=== PATIENT | male | born 1945 | race Caucasian/White ===

== ENCOUNTER 2019-01-15 13:24 | Inpatient (IN) | payer OTHER ==
[~2019-01-15] VITALS: Ht 177.8 cm; Wt 73.4 kg
--- NOTE | ~2019-01-15 | CON ---
[address] [address] CONSULTATION Name: YUSEF OLSON Polly Room: [address] IN ..#: [id number] Admission: 01/15/19 Attend Phys: Ravin Little MD Discharge: Date of : 45 Report #: [id number] THIS REPORT FOR: //name// CC: Dr. Debbie Rubio FAM unknown Ravin Little DICTATED BY: Amairani Chavira [facility] DATE OF SERVICE: 01/20/2019 PRIMARY CARE PHYSICIAN: Dr. Debbie Rubio. Please note at the time of this dictation, the patient was seen and physically examined by myself. REASON FOR CONSULTATION: Abnormal video swallowing. HISTORY OF PRESENT ILLNESS: This is a 73-year-old male who suffered a stroke earlier in December. He was hospitalized at [facility] for 2 weeks and was [facility]. Because he had failed a swallowing test early on he underwent a PEG tube placement on 01/08/2019. They did state that he did have some duodenal ulcers in there, but I do not have a report to look to see what his upper esophagus showed if anything. The patient is currently on warfarin for his history of stroke. The patient states he has had EGD and colonoscopies done in the past at [facility]. ALLERGIES: AMLODIPINE, DILTIAZEM, HYDRALAZINE, AND STATINS. MEDICATIONS FROM HOME: Warfarin, albuterol, aspirin, lisinopril, glyburide, carvedilol, docusate, insulin, and lansoprazole. PAST MEDICAL HISTORY: Heart disease, hypertension, and vascular disease. He has had a valve replacement. PAST SURGICAL HISTORY: Valvular replacement. FAMILY HISTORY: Noncontributory. SOCIAL HISTORY: Quit smoking greater than one year ago. Alcohol socially, does live with his spouse and denies any illegal drug use. REVIEW OF SYSTEMS: Twelve-point review of systems is essentially negative except what [place] [address] CONSULTATION Name: OLSONYUSEF Polly Room: [address]#: [id number] Admission: 01/15/19 Attend Phys: Ravin Little MD Discharge: Date of : 45 Report #: [id number] PHYSICAL EXAMINATION: VITAL SIGNS: Temperature 37.1, pulse 85, respirations 16, and blood pressure 157/89. HEART: Regular rate and rhythm. LUNGS: Clear. ABDOMEN: Soft, positive bowel sounds in all 4 quadrants with no masses or tenderness noted. LABORATORY DATA: Hemoglobin is 11.7, white count is 10.2, and platelets 238. PT is 19.4 and INR is 1.9. His GFR is 73. IMPRESSION: 1. Abnormal video swallow noted by speech therapist noticing some narrowing in the upper esophagus. 2. Anticoagulant therapy, warfarin secondary to stroke. 3. History of duodenal ulcers noted with PEG placement. 4. Gastroesophageal reflux disease. PLAN: 1. We will obtain records from [facility] regarding his EGD with PEG placement. 2. We will obtain a barium swallow with thickened honey only in the upright position and we will avoid lying down procedure. 3. Further recommendations to be made once the above have been performed. Thank you for allowing us to participate in this patient's care. Please do not hesitate to call with any questions in regard to this consult. By: [id number] Muir MD /nt
[2019-01-15 15:00] VITALS: BP 128/64
[2019-01-15] MEDS ORDERED: PROAIR HFA8.5 GM INH (16:45)
[2019-01-15] MEDS ORDERED: ASPIRIN PER TUBE (16:48)
[2019-01-15] MEDS ORDERED: CARVEDILOL12.5 MG PER TUBE (16:49)
[2019-01-15] MEDS ORDERED: ENOXAPARIN100 MG/11 SUBQ (16:50)
[2019-01-15] MEDS ORDERED: FISH OIL 1,001000 M3 PO (16:53)
[2019-01-15] MEDS ORDERED: AMARYL2 M1 PER TUBE (17:15)
[2019-01-15] MEDS ORDERED: PREVACID30 MG PER TUBE (17:26)
[2019-01-15] MEDS ORDERED: PRINIVIL20 M1 PER TUBE (17:32)
[2019-01-15] MEDS ORDERED: COUMADIN 5 MG TA5 M1 PER TUBE (17:33)
[2019-01-15] MEDS ORDERED: ROSUVASTATIN CA10 MG PER TUBE (17:49)
--- NOTE | 2019-01-15 21:14 | NUR ---
PATIENT ARRIVED VIA FAMILY CAR WITH SON. ALERT AND ORIENTED X4. ASSESSMENT CHARTED. UP WITH STAND BY ASSIST, GAIT BELT AND WALKER. NPO AT THIS TIME WITH BOLUS TUBE FEEDING PER PEG TUBE EVERY 3 HOURS FROM 6 AM TO 6 PM. PATIENT C/O NAUSEA AND NEW ORDER RECEIVED FOR NAUSEA MEDICATION. SPEECH SLURRED BUT EASY TO UNDERSTAND. PATIENT REQUESTED SUCTIONS FOR ORAL SECRETIONS. DR NOTIFIED AND NEW ORDER NOTED. BUTTOCK AREA RED BUT NO OPEN AREA NOTED. ORIENTED TO ROOM AND CALL LIGHT. CALL LIGHT WITHIN REACH.
[2019-01-15 21:50] VITALS: BP 161/79
--- NOTE | 2019-01-16 02:25 | NUR ---
ASSUMED CARE @ 1929-01/15-FRIDAY.SITS @ BEDSIDE & CALLED TO GO TO BATHROOM W/ ASSIST.HOB UP IN BED.URINAL PLACED W/IN REACH.INSTRUCTED TO USE URINAL @ NIGHT.BED ALARM PUT ON @ 1929.AT 0-PATIENT VERBALIZED WANTING TO EAT. INFORMED PATIENT THAT ORDER WAS NPO.PATIENT INFORMED RN HE WAS EATING PUDDING & thickened liquid @ [facility].RN TALKED TO PATIENT THAT HE WOULD BE EVALUATED BY SPEECH THERAPIST IN AM FOR SWALLOWING EVAL.CALLS TO STAND TO USE URINAL.SUCTIONS SELF & SHOWN HOW TO RINSE SUCTION AFTER EACH USE.ON HOURLY ROUNDS.
[2019-01-16 04:58] LABS: HEMATOCRIT 36.3 % (42.0-52.0); HEMOGLOBIN 12.2 gm/dL (14.0-18.0); MCH 30.3 pg (26.0-34.0); MCHC 33.6 g/dL (28.0-37.0); MCV 90.1 fL (80.0-100.0); MPV 10.9 fl. (7.2-11.1); RBC 4.03 mil/uL (4.50-6.00); RDW-CV 15.9 % (10.5-14.5); WBC 11.9 thou/uL (4.0-11.0)
[2019-01-16 05:00] LABS: INR 1.5; PROTIME 14.7 Seconds (9.20-11.50)
[2019-01-16 05:23] LABS: ALBUMIN 3.3 g/dL (3.4-5.0); CALCIUM 9.4 mg/dL (8.5-10.1); POTASSIUM 4.2 mmol/L (3.5-5.1); TOTAL BILIRUBIN 0.5 mg/dL (<0.1-1.0); TOTAL PROTEIN 6.4 g/dL (6.4-8.2)
--- NOTE | 2019-01-16 05:36 | NUR ---
SLEEPING @ 2100.BUT AWAKE FROM 2200 TO 0200.SLEEPING @ 0300 TO 0500.TURNS SELF @ NIGHT.BRP X1 TO VOID.USED URINAL X2.URINE FOR UA SENT TO LAB @ 0330.
[2019-01-16 05:46] LABS: URINE BILIRUBIN NEGATIVE (Negative); URINE BLOOD NEGATIVE (Negative); URINE CLARITY CLEAR; URINE COLOR YELLOW; URINE GLUCOSE-RANDOM 3+ (Negative); URINE KETONES NEGATIVE (Negative); URINE LEUKOCYTES NEGATIVE (Negative); URINE NITRITE NEGATIVE (Negative); URINE PROTEIN NEGATIVE (Negative); URINE UROBILINOGEN 0.2 E.U./dl (0.2-1.0)
--- NOTE | 2019-01-16 07:23 | NUR ---
NO RESIDUAL FROM PEG @ 0640.BOLUS TF GIVEN FOLLOWED W/ 200 ML H20.DRSG CHANGED PEG SITE @ 0645.
[2019-01-16 09:00] VITALS: BP 126/78
--- NOTE | 2019-01-16 09:49 | NUR ---
PT USED THE CALL LIGHT BECAUSE HE WANTED TO GET BACK INTO BED. I CHECKED THE THERAPY AND SCHEDULE AND WAS GOING TO HIS ROOM WHEN HIS CHAIR ALARM WENT OFF. ONCE I REACHED THE ROOM I FOUND HIM SITTING ON THE SIDE OF THE BED. PT STATED IN A LOUD, ARGUMENTATIVE VOICE THAT IF HE CAN DO SOMETHING HIMSELF HE WILL NOT WAIT FOR STAFF TO COME. ATTEMPTS MADE TO EDUCATE PT ON IMPORTANCE OF ADHERING TO THE FALL PRECAUTIONS.
[2019-01-16 14:47] LABS: INR 1.5; PROTIME 15.4 Seconds (9.20-11.50)
--- NOTE | 2019-01-16 18:50 | NUR ---
PATIENT AGITATED AND ARGUMENTATIVE THIS AM, CALMED WHEN THERAPY CAME IN TO DO EVAL. PATIENT MORE PLEASANT AND COOPERATIVE THRU AFTERNOON. FRIEND IN TO SEE PATIENT THIS EVENING. SEE PT/OT NOTES. SEE MAY. PEG TUBE SITE NOTED WNL. MEDICATIONS GIVEN PER PEG THRU SHIFT. RESTING IN BED W/ CALL LIGHT IN REACH. EYES CLOSED AT THIS TIME, NO ACUTE DISTRESS NOTED. ~TJRN
[2019-01-16 19:50] VITALS: BP 135/72
--- NOTE | 2019-01-17 02:18 | NUR ---
ASSUMED CARE @ 1934-01/16-SAT.AWAKE IN BED.CALLS FOR ASSIST TO STAND TO VOID. NURSE JUST EMPTIES URINAL.BED ALARM PUT ON @ 1944.TUBE FEEDING OF JEVITY 1.5 0NE CAN GIVEN PER PEG @ 2154.25 ML RESIDUAL.H20 BOLUS OF 150 ML GIVEN AFTER TF.TURNS SELF @ NIGHT.SUCTIONS SELF.ON HOURLY ROUNDS.
[2019-01-17 05:19] LABS: INR 1.7; PROTIME 17.1 Seconds (9.20-11.50)
--- NOTE | 2019-01-17 05:21 | NUR ---
SLEEPING @ 2100,2200 & 2300. SLEPT GOOD ALL NIGHT FROM 0000 TO 0410.REFUSED HS SNACK.USED URINAL X3.NOTED SMALL AMOUNT BLEEDING ON PT'S SHIRT.PEG SITE BLEEDING.PEG SITE CLEANSED W/ H20,DRIED & DRAIN SPONGE APPLIED @ 0415.USED URINAL X3 DURING NIGHT.
[2019-01-17 08:00] VITALS: BP 153/75
--- NOTE | 2019-01-17 15:48 | NUR ---
AM ASSESSMENT AND VITAL SIGNS COMPLETED DOCUMENTED. PT HAS BEEN PLEASANT AND COOPERATIVE THIS SHIFT. PT USES THE URINAL STANDING AT THE BEDSIDE, STAFF EMPTIES IT AND RETURNS IT TO HIM. PT FEEDS HIMSELF AND HAS A FAIR APPETITE. MEDICATIONS ARE CRUSHED AND ADMINISTERED VIA THE PEG TUBE, NUTRITION SUPPLEMENTED WITH 2 BOLUS FEEDINGS DAILY. FALL PRECAUTIONS AND HURLY ROUNDING CONTINUE.
[2019-01-17 19:00] VITALS: BP 162/75
--- NOTE | 2019-01-18 02:44 | NUR ---
ASSUMED CARE @ 1934-01/17-FRIDAY.APPEARS SLEEPING ALREADY IN BED W/ HOB UP. URINAL W/IN REACH.BED ALARM PUT ON @ 1934.SUCTIONS SELF & TURNS SELF @ NIGHT. RESIDUAL-150 ML.JEVITY 1.5 ONE CAN GIVEN PER PEG @ 2129 W/ H20 FLUSH-150 ML.HAD SMALL EMESIS @ 2221.PRN ZOFRAN GIVEN @ 2230 W/ RELIEF.CALLED FOR 2ND EMESIS @ 214-SCANTY.RINSED BOTH TIMES W/ MOUTHWASH.INFORMED THAT PRN ZOFRAN IS ORDERED Q 6 HOURS.SBA TO STAND TO USE URINAL.ON HOURLY ROUNDS.
--- NOTE | 2019-01-18 05:31 | NUR ---
SLEEPING SINCE 1935.AWAKE @ INTERVALS.USED URINAL X3.TOOK ALL HONEY THICK APPLE JUICE HS SNACK.PEG TIMBO CHANGED @ 9892.FOR VIDEO SWALLOW TODAY- 01/18-FRIDAY.
[2019-01-18 06:01] LABS: INR 1.8; PROTIME 17.8 Seconds (9.20-11.50)
[2019-01-18 07:30] VITALS: BP 142/75
--- NOTE | 2019-01-18 14:57 | NUR ---
ASSUMED CARE AT 0730. ALERT ORIENTED PLEASANT COOPERATIVE. HX OF CVA MOVES ALL EXTREMETIES. TRANSFERS WITH G BELT WALKER AND AMBULATES WITH THERAPIES. DENIES PAIN BUT HAS COMPLAINTS OF DIZZINESS PT. THINKS THE DIZZINESS IS RELATED TO LOVENOX INJECTIONS. FEEDS SELF PUREED DIET AND HONEY LIQUIDS MEDS CRUSHED AND THROUGH PEG TUBE THIS A.M. DR. MARROQUIN HERE AND SPOKE WITH PT. RE LOVENOX AND INR READINGS. L ARM WHERE PT. HAD LAB DRAW HAS BLED X 2 PRESSURE HELD AND 4 X 4 S WITH COBAN PLACED. PT. HAS PARTICIPATED IN THERAPIES HAD VIDEO SWALLOW CAN HAVE REGULAR DIET WITH HONEY LIQUIDS AND MEDS CAN BE GIVEN WHOLE WITH HONEY LIQUIDS. DID C/O NAUSEA ZOFRAN 4 MG. ODT GIVEN THIS A.M. [place] BUT UNDERSTANDS STAFF. VOIDS PER URINAL. COUGHS PRODUCTIVELY AT TIMES. HAS ANGELINE AT BEDSIDE. PEG TUBE DRESSING INTACT.
--- NOTE | 2019-01-18 16:29 | NUR ---
SW completed initial assessment for inpt rehab unit. Pt nurse and DIRECTOR BUSINESS SYSTEMS working with pt and changing pt bed sheets as pt blood was on sheets. Pt lives at home alone and has supportive family and friends. Pt has shower chair or bench and needs home INR; SW to follow to assist with arranging needed DME for home prior to pt dc. SW to continue to follow to assist with safe dc planning.
[2019-01-18 17:39] LABS: HEMATOCRIT 34.7 % (42.0-52.0); HEMOGLOBIN 11.7 gm/dL (14.0-18.0); MCH 30.8 pg (26.0-34.0); MCHC 33.9 g/dL (28.0-37.0); MCV 91.1 fL (80.0-100.0); MPV 10.9 fl. (7.2-11.1); RBC 3.81 mil/uL (4.50-6.00); WBC 10.2 thou/uL (4.0-11.0)
[2019-01-18 17:51] LABS: INR 1.8; PROTIME 18.1 Seconds (9.20-11.50)
[2019-01-18 19:30] VITALS: BP 141/73
--- NOTE | 2019-01-18 19:44 | NUR ---
PT. HAS HAD BLEEDING FROM LEFT ANTECUBITAL LAB DRAW X 3. DR. TAVAREZ AND DR. MARROQUIN AWARE AND ORDERS OBTAINED RE PRESSURE DRESSING APPLICATION TO AREA AND MONITOR CLOSELY. PT// INR REDRAWN AT 1700 AND CBC. PT/INR WAS SAME A.M. DRESSING WAS REPLACED AT 1630 AND TEGADERM APPLIED OVER 4 X 4 S AT SHIFT CHANGE DRESSING WAS SATURATED UNDER TEGADERM BUT NOT ON PTS. CLOTHING L ARM ELEVATED ON PILLOW AND KEPT STILL FOR OVER AN HR, REFUSED METFORMIN COUMADIN THIS P.M.
[2019-01-19 05:11] LABS: INR 1.5; PROTIME 15.1 Seconds (9.20-11.50)
--- NOTE | 2019-01-19 05:29 | NUR ---
ASSUMED CARES AT 1920. ALERT AND ORIENTED. THIS EVENING PT EXPRESSED FRUSTRATION WITH VARIOUS THINGS LIKE MEDS, PT/INR, AND BLEEDING TO LEFT ARM. TOOK PILLS WHOLE WITH APPLESAUCE AND HONEY THICK LIQUIDS. PEG TUBE PATENT. PT REFUSED 1900 CAN OF TUBE FEEDING. TOOK 2200 CAN OF GLUCERNA BUT C/O OF BEING FULL WHICH THEN SUBSIDED. COUGHING UP SMALL AMOUNTS PHLEGM, THIN/THICK CLEAR. ORDER FOR GEL FOAM APPLIED TO LEFT AC DUE TO CONTINUOUS BLEEDING. NO FURTHER BLEEDING NOTED. PT REFUSED LOVENOX. EARLIER IN DAY PT HAD REFUSED COUMADIN BUT AFTER DISCUSSION PT ONLY AGREEABLE TO TAKE 7.5 MG AND NOT 10 MG ORDERED AND SO COUMADIN 7.5 MG GIVEN. PT ALSO WANTED TO KNOW WHY HE WAS NOT TAKING HIS CHOLESTEROL MED. INFORMED PT THAT WOULD NEED TO DISCUSS WITH HOSPITALIST IN AM. MIN ASSIST WITH GAIT BELT AND WALKER. USED URINAL AND NURSING EMPTIED. SLEPT SOME. CALL LIGHT IN REACH AND BED ALARM ON.
[2019-01-19 08:08] VITALS: BP 160/83
[2019-01-19 09:30] VITALS: BP 160/83
--- NOTE | 2019-01-19 18:21 | NUR ---
PATIENT ALERT AND ORIENTED WITH PERIODS OF FORGETFULLNESS. UP WITH STAND BY ASSIST, GAIT BELT AND WALKER. PATIENT BECAME VERY AGGITATED WITH CHANGE IN MEDICATIONS THIS AM. HE REFUSED ALL HIS PO MEDICATIONS AT FIRST BUT LATER DID TAKE EVERYTHING EXCEPT HIS PO BLOOD SUGAR MEDICATIONS. HE IS ON HONEY THICKEN LIQUIDS WITH REGULAR DIET. MESSAGE LEFT FOR GI CONSULT. CONTINENT OF URINE WITH USE OF URINAL. TUBE FEEDING D/C BY PATIENT ABLE TO TAKE PILLS WHOLE FOLLOWED BY APPLE SAUCE WITHOUT DIFFICULTY. PATIENT REFUSED LAXATIVE WHEN OFFERED. PARTICIPATED WITH THERAPIES. CALL LIGHT WITHIN REACH. SPEECH REMAINS SLIGHTLY SLURRED. ABLE TO LET WANTS AND NEEDS BE KNOW N.
[2019-01-19 19:00] VITALS: BP 172/83
[2019-01-20 04:42] LABS: INR 1.9; PROTIME 19.4 Seconds (9.20-11.50)
--- NOTE | 2019-01-20 05:58 | NUR ---
ASSUMED CARES AT 1920. ALERT AND ORIENTED BUT EASILY IRRITABLE. TOOK PILLS WHOLE WITH APPLESAUCE. MIN ASSIST WITH GAIT BELT AND WALKER. USED URINAL. COUGHS UP THIN PHLEGM. HAS CL AT BEDSIDE. SLEPT MOST OF THE NIGHT. CALL LIGHT IN REACH AND BED ALARM ON.
[2019-01-20 08:00] VITALS: BP 157/79
[2019-01-20 09:30] VITALS: BP 157/89
--- NOTE | 2019-01-20 12:50 | NUR ---
TAM and Dr Little met with pt to review team conference summary and plan for pt to remain on rehab unit at least another week with team to reassess pt length of stay during team conference next Friday. Pt was upset with the plan for reteam because pt felt he would be ready to dc sooner. Dr Little and TAM explained pt safety and goals with pt needing to be more independent with all tasks as pt is home alone. SW to complete handicap parking application and provide back to pt prior to dc and SW working on securing INR monitor; TAM called cardiology office to discuss how to arrange and who to order from because usually PCP, cardiology or services arrange for pts but no answer. SW to continue to work on arranging home INR monitor for pt prior to pt dc (dc date unknown at this time; reteam next Friday).
--- NOTE | 2019-01-20 19:49 | NUR ---
ALERT WITH PERIODS OF FORGETFULLNESS. DR NOTIFIED OF PATIENT REFUSING SOME OF MEDICATIONS. PILLS GIVEN PO WITHOUT DIFFICULTY FOLLOWED WITH APPLESAUCE. PATIENT REFUSED LAXATIVE FOR CONSTIPATION. UP WITH STAND BY ASSIST GAIT BELT AND WALKER. REMAINS ON HONEY THICKEN LIQUIDS. SPEECH SLIGHTLY SLURRED BUT EASY TO UNDERSTAND. CALL LIGHT WITHIN REACH.
[2019-01-20 20:40] VITALS: BP 137/69
--- NOTE | 2019-01-21 02:11 | NUR ---
ASSUMED CARE @ 1939-01/20-FRI.SITTING IN TOILET @ THIS TIME.SBA FOR TOILETING. LAST BM-01/15.DUL SUP GIVEN RECTALLY @ 1949.LARGE HARD STOOLS FELT WHEN SUP INSERTED.BRP X 2 @ 1939 & 1949-BY HIMSELF.INSTRUCTED TO CALL FOR Assist. AFTER 3RD & 4TH TOILETING,INSTRUCTED TO USE BSC @ 2054 & SIT UNTIL BM IS COMPLETED.HAD LARGE BM @ 2044 & EXTRA LARGE,FORMED BM @ 2129.BED ALARM ON @ 2129.REFUSED TO TAKE MEDS W/ HONEY THICK LIQUIDS.PREFERS TO TAKE HS MEDS W/ APPLE SAUCE BUT TAKEN WHOLE ONE @ A TIME.TEMP @ 2039-.1 -ORAL.TEMP RE-CHECKED @ 49-.5 ORAL.TURNS SELF @ NIGHT.SUCTIONS SELF.ON HOURLY ROUNDS.
[2019-01-21 04:39] LABS: PROTIME 36.4 Seconds (9.20-11.50)
[2019-01-21 04:43] LABS: INR 3.7
--- NOTE | 2019-01-21 05:47 | NUR ---
SLEPT LATE @ 0000-01/21-.AWAKE MOST OF TIME DURING NIGHT.USED URINAL X1 ONLY W/ SBA TO STAND @ 0040.TOOK ALL APPLE SAUCE W/ HS MEDS HS SNACK.IZABEL IZQUIERDO CHANGED @ 0435.BRP X4.BSC X1.
[2019-01-21 10:06] VITALS: BP 172/94
--- NOTE | 2019-01-21 14:18 | NUR ---
SW met with pt and provided completed [employer] parking application. Also provided resources of [facility] group of doctors per pt request to be able to switch from previous PCP of Debbie Eric out of [place]. SW informed pt of TAM working on ordering pt a home INR monitor; SW faxed referral for order to [facility]. SW to continue to follow to assist with safe dc planning.
--- NOTE | 2019-01-21 18:08 | NUR ---
PT HAS PARTICIPATED WITH THERAPIES AND CALLS FOR ASSIST NEEDED. PT STANDS AT SIDE OF BED TO VOID WITH URINAL AND SBA WITH WALKER. PT IS ALERT AND ABLE TO VOICE NEEDS. PT HAS ORAL SUCREATIONS AND SPITS THEM OUT OR USES YANKER. BED AND CHAIR ALARMS IN USE AND FALL PREVENTION DISCUSSED.
[2019-01-21 19:35] VITALS: BP 145/73
--- NOTE | 2019-01-22 01:50 | NUR ---
ASSUMED CARE @ -FRIDAY.APPEARS SLEEPING IN BED W/ HOB UP.BED ALARM ALREADY ON @ 1924.AWAKE @ 2054 & TOOK ALL HS MEDS WHOLE ONE @ A TIME W/ JORGE. PUDDING,FOLLOWED W/ HONEY THICK APPLE JUICE.GAVE SELF MOUTHWASH @ 2134.CALLED @ 2244 TO SBA TO SIT IN RECLINER W/ LE'S UP.CHAIR ALARM PUT ON @ 2244.SUCTIONS SELF.TURNS SELF @ NIGHT.OWN MOISTURE CREAM APPLIED TO PINK BUTTOCKS @ 109. SBA BACK TO BED @ 119-01/22-FRIDAY.ON HOURLY ROUNDS.
[2019-01-22 05:05] LABS: HEMATOCRIT 29.7 % (42.0-52.0); HEMOGLOBIN 9.7 gm/dL (14.0-18.0); MCH 30.3 pg (26.0-34.0); MCHC 32.7 g/dL (28.0-37.0); MCV 92.5 fL (80.0-100.0); RBC 3.22 mil/uL (4.50-6.00); WBC 11.3 thou/uL (4.0-11.0)
[2019-01-22 05:08] LABS: INR 4.2; PROTIME 41.3 Seconds (9.20-11.50)
[2019-01-22 05:12] LABS: CREATININE 0.9 mg/dL (0.6-1.3); MAGNESIUM 1.7 mg/dL (1.8-2.4); POTASSIUM 4.1 mmol/L (3.5-5.1)
--- NOTE | 2019-01-22 05:40 | NUR ---
SLEEPING SINCE 1924.AWAKE @ INTERVALS DURING NIGHT.PULL UPS CHANGED X1.BRP W/ SBA X1.PEG DRSG CHANGED @ 0500.TOOK ALL JORGE PUDDING GIVEN W/ HS MEDS & HONEY THICK APPLE JUICE.
[2019-01-22 08:44] VITALS: BP 148/76
--- NOTE | 2019-01-22 16:35 | NUR ---
pt rests this afternoon but did have c/o nausea and not feeling well. here at time. pt given zofran with good effect.bp was 132/67,83.pt remains alert and orientated and calls for sba when standing at bedside to void.pt ambulates with gaitbelt on and sba of 1 per PT.pt denies pain.
[2019-01-22 20:35] VITALS: BP 129/73
--- NOTE | 2019-01-22 20:35 | NUR ---
SITTING UP IN BED WATCHING BASEBALL GAME ON TV. DENIES PAIN. USES YONKER INTERMITTENTLY TO SUCTION SELF. PEG TUBE INTACT. PEG DRESSING DRY/INTACT. URINAL AND CALL LIGHT WITHIN REACH. TOOK MEDICATION WHOLE WITH APPLESAUSE.
[2019-01-23 04:50] LABS: INR 2.8; PROTIME 28.1 Seconds (9.20-11.50)
--- NOTE | 2019-01-23 05:12 | NUR ---
RESTED ON/OFF. USED URINAL X TWO DURING THE SHIFT. STANDS AT THE BEDSIDE TO VOID. HOURLY ROUNDING IN PROGRESS.
[2019-01-23 07:32] VITALS: BP 133/62
--- NOTE | 2019-01-23 14:41 | NUR ---
ASSUMED CARE AT 0730. ALERT ORIENTED PLEASANT COOPERATIVE. HX OF CVA MOVES ALL EXTREMETIES WELL. TRANSFERS WITH SBA G BELT WALKER PARTICIPATING IN THERAPIES THIS A.M. FEEDS SELF AND TAKES MEDS WHOLE IN APPLESAUCE WITHOUT DIFFICULTY. REFUSES MAGNESIUM TODAY KNOWS HIS MEDS WELL. STATED DIZZINESS WHILE AMBULATING WITH P.T. BPS UP AND DOWN PER PHYSICAL THERAPIST. TO DR FOR LUNCH MEAL APPETITE GOOD. ZINC CREAM APPLIED TO COCCYX AREA PINKNESS NOTED ENCOURAGED TO STAY ON HIS SIDES NOT SUPINE. COUGHS PRODUCTIVELY AT INTERVALS. CLEAR THIN WHITE SPUTUM. RESTING IN BED AFTER THERAPIES.
[2019-01-23 18:30] VITALS: BP 132/73
--- NOTE | 2019-01-23 19:00 | NUR ---
PT. C/O FEELING DIZZY AT 1830. VS WERE WNL SEE GRAPHICS ACCUCHECK WAS 172 AFTER SUPPER MEAL. SITTING UP IN BED. HOB ELEVATED.
--- NOTE | 2019-01-23 19:30 | NUR ---
WENT IN TO CHECK ON PT SINCE HE WAS ANGRY AND THE OTHER RN ASKED ME TO GO LISTEN TO HIS HEART SINCE HE WANTED A PT LAB TO BE RUN. LISTENED TO HIS HEART AND HEARD A RHYTHM THAT SOUNDED LIKE AFIB WHICH IS IN HIS HISTORY. PT STATED HE HAS BEEN "HAVING CHEST PAIN OFF AND ON AND ALL THESE DOCTORS ARE JUST TAKING ALL HIS MEDICATIONS AWAY". WHEN ASKED WHAT MEDICATIONS ARE BEING TAKEN AWAY AND HE STATED HIS FISH OIL WAS PRESCRIBED TWICE A DAY AND THEY HAVE "TAKEN IT AWAY". HE CALLED AND LEFT A MESSAGE WITH HIS SON ON HIS CELL PHONE AND CUSSED HIM OUT DEMANDING THAT HE BRING HIS MEDICATIONS TO THE HOSPITAL. ONCE OFF THE PHONE HE STATED THAT "IF HIS SON DOES NOT BRING HIS MEDS THAT MEANS HE JUST WANTS HIM ". PHYSICIAN AND CHECK CASHIER NOTIFIED, NO NEW ORDERS AT THIS TIME.
--- NOTE | 2019-01-23 19:41 | NUR ---
HOURLY ROUNDING COMPLETED. THIS SHIFT.
[2019-01-23 20:00] VITALS: BP 144/68
--- NOTE | 2019-01-23 21:36 | NUR ---
ASSUMED CARES AT 1930. PT ALERT AND ORIENTED BUT IRRITABLE, UPSET AND FRUSTRATED. REASSESSED PT ABOUT "CHEST PAIN" BUT PT STATES THAT PAIN IS TO LEFT LOWER RIB AND IS NO LONGER THERE. PT UPSET AND ADAMANT THAT HE IS HAVING THIS PAIN BECAUSE HE HAS NOT BEEN TAKING HIS FISH OIL. PT STILL HAS SOME DIZZINESS WHICH HE'S HAD ALL DAY. VITALS WNL. PT DENIED ANY FURTHER PAIN AND NOT IN DISTRESS AT THIS TIME. RESTING COMFORTABLY IN BED. PAGED DR PEREIRA WITH THIS UPDATE. WILL CONTINUE TO MONITOR.
[2019-01-24 04:33] LABS: CALCIUM 8.9 mg/dL (8.5-10.1); CREATININE 1.1 mg/dL (0.6-1.3); MAGNESIUM 1.8 mg/dL (1.8-2.4); POTASSIUM 4.3 mmol/L (3.5-5.1)
[2019-01-24 04:44] LABS: INR 1.5; PROTIME 15.2 Seconds (9.20-11.50)
--- NOTE | 2019-01-24 06:14 | NUR ---
AT MIDNITE, PT HAD MUCH DIFFICULTY WITH BM. PT WAS IMPACTED. SUPPOSITORY, ENEMA GIVEN. PT NEEDED MUCH ASSIST WITH DISIMPACTION AFTER NUMEROUS ATTEMPTS AND WAS ABLE TO HAVE BM WITH RELIEF. MIN ASSIST WITH GAIT BELT AND WALKER. UP TO BATHROOM OR BSC. USED URINAL. TOOK PILLS WHOLE WITH APPLESAUCE AND HONEY THICK LIQUIDS. ENCOURAGED FLUIDS. LOOSE COUGH WITH PHLEGM. YANKAUER AT BEDSIDE. SLEPT LITTLE. CALL LIGHT IN REACH AND BED ALARM ON.
[2019-01-24 08:58] VITALS: BP 111/58
--- NOTE | 2019-01-24 18:03 | NUR ---
ALERT WITH PERIODS OF FORGETFULNESS. UP WITH STAND BY ASSIST, GAIT BELT AND WALKER. MEDICATION GIVEN FOR CONSTIPATION. CONTINENT OF URINE. PATIENT REFUSING TO DRINK HONEY THICKEN LIQUIDS/ WATER. DR NOTIFIED AND NEW ORDER FOR WATER TO BE GIVEN IN PEG TUBE. PEG TUBE CHECKED FOR PATENTCY AND THEN FLUIDS GIVEN IN PEG TUBE WITHOUT DIFFICULTY. PATEINT EASILY AGGITATED. REFUSING CARES AND MEDICATIONS AT TIMES. NO C/O PAIN. NAUSEA MEDICATION GIVEN WITHOUT DIFFICULTY. CALL LIGHT WITHIN REACH AND PATIENT WILL SOMETIMES USE IT AND OTHER TIMES PATIENT WILL GET UP WITHOUT CALLING. CALL LIGHT WITHIN REACH.
[2019-01-24 20:00] VITALS: BP 131/69
--- NOTE | 2019-01-25 05:16 | NUR ---
ASSUMED CARES AT 1920. ALERT AND ORIENTED BUT CAN BE FORGEFUL. IS EASILY IRRITABLE. TOOK PILLS WHOLE WITH APPLESAUCE. WATER BOLUSES GIVEN VIA PEG TUBE. IMPULSIVE MOST TIMES, GETTING UP WITHOUT CALLING. MIN ASSIST WITH GAIT BELT AND WALKER. USED URINAL. COUGHING OUT PHLEGM. SLEPT BETTER TONIGHT. CALL LIGHT IN REACH AND BED ALARM ON.
[2019-01-25 05:53] LABS: INR 1.2; PROTIME 12.7 Seconds (9.20-11.50)
--- NOTE | 2019-01-25 08:37 | NUR ---
PT C/O DYING. COUGH THIS AM WITH LARGE LIGHT YELLOW SPUTUM NOTED O2 SAT IS 99,TEMP 98.3. PT C/O PAIN TO LT MLOWER RIBS,PLAIN TYLENOL GIVEN. PT C/O BEING DROWSEY BUT IS ALERT AND ORIENTATED.
[2019-01-25 08:43] VITALS: BP 164/76
--- NOTE | 2019-01-25 11:41 | NUR ---
PT HAS HAD EPISODE OF N+V AND REFUSES OFFER OF SL ZOFRAN. PT SITTING IN RECLINER WITH FEET UP. PT SHAKES HEAD YES OR NO FOR MOST RESPONCES THIS AM AND OFTEN KEEPS EYES CLOSED BUT WILL OPEN THEM AT TIMES.
[2019-01-25 12:59] LABS: HEMATOCRIT 25.4 % (42.0-52.0); HEMOGLOBIN 8.4 gm/dL (14.0-18.0); MCH 31.1 pg (26.0-34.0); MCHC 33.1 g/dL (28.0-37.0); MCV 93.9 fL (80.0-100.0); MPV 10.2 fl. (7.2-11.1); RBC 2.7 mil/uL (4.50-6.00); WBC 11.7 thou/uL (4.0-11.0)
[2019-01-25 13:13] LABS: CREATININE 0.9 mg/dL (0.6-1.3); POTASSIUM 3.9 mmol/L (3.5-5.1)
--- NOTE | 2019-01-25 16:03 | NUR ---
PT RESTS IN BED NOW AND HAS SLEPT MOST OF AFTERNOON. PT DID REFUSE LUNCH AND REFUSED SC INSULIN.DR.DELA FIGUEROA AWARE. PT DID HAVE CHEST AND ABD X-RAYS DONE WITH NO ABNORMAL FINDINGS.PT CONTINUES TO BE QUIET AND SHAKES HEAD TO YES AND NO QUESTIONS. PT HAS NOT C/O FUTHER NAUSEA OF HAD EMISIS. PT IS GIVEN H2O BOLUS PER PEG TUBE. ALSO AWARE OF PT TODAY.
[2019-01-25 20:00] VITALS: BP 106/60
[2019-01-25 20:31] LABS: URINE BILIRUBIN NEGATIVE (Negative); URINE BLOOD NEGATIVE (Negative); URINE CLARITY CLEAR; URINE COLOR YELLOW; URINE GLUCOSE-RANDOM 2+ (Negative); URINE KETONES NEGATIVE (Negative); URINE LEUKOCYTES-REFLEX NEGATIVE (Negative); URINE NITRITE-REFLEX NEGATIVE (Negative); URINE PROTEIN NEGATIVE (Negative); URINE UROBILINOGEN 0.2 E.U./dl (0.2-1.0)
[2019-01-25 23:30] VITALS: BP 123/70
[2019-01-26 05:22] LABS: INR 1.4; PROTIME 14.2 Seconds (9.20-11.50)
[2019-01-26 06:14] VITALS: BP 108/59
[2019-01-26 07:15] LABS: HEMATOCRIT 24.7 % (42.0-52.0); HEMOGLOBIN 8.3 gm/dL (14.0-18.0); MCH 31.3 pg (26.0-34.0); MCHC 33.5 g/dL (28.0-37.0); MCV 93.3 fL (80.0-100.0); MPV 10.1 fl. (7.2-11.1); RBC 2.64 mil/uL (4.50-6.00); RDW-CV 18.1 % (10.5-14.5); WBC 8.8 thou/uL (4.0-11.0)
[2019-01-26 07:24] LABS: CALCIUM 8.7 mg/dL (8.5-10.1); POTASSIUM 4.1 mmol/L (3.5-5.1); TOTAL BILIRUBIN 0.6 mg/dL (<0.1-1.0); TOTAL PROTEIN 5.9 g/dL (6.4-8.2)
--- NOTE | 2019-01-26 07:33 | NUR ---
ASSUMED CARE AT 1920. PT SLEEPY BUT EASILY AROUSABLE. LESS TALKATIVE. AT TIMES DOES NOT RESPOND TO QUESTIONS BUT KEEPS EYES SHUT AND SHAKES HEAD. SAYS "IM SICK". DENIED CHEST PAIN, DIZZINESS. GOT AGITATED WHEN GIVEN MEDS. VITALS WNL. ACCUCHECK 105 AT HS. PT REFUSED SNACK AND WOULD NOT DRINK. DOES NOT LIKE HONEY LIQUIDS AND DID NOT EAT WELL DURING THE DAY. 1 CAN GLUCERNA WAS GIVEN VIA PEG TUBE AT 2100. WATER BOLUSES GIVEN. MIN ASSIST WITH GAIT BELT AND WALKER. STOOD TO USE URINAL BUT PT SEEMED FATIGUED AND WEAK. SAT UP AND DOWN FROM BED THROUGHOUT THE NIGHT. NO VOMITING BUT SPITTING OUT THICK CLEAR/BEIGE PHLEGM. PAGED DR MARROQUIN AT 0630 WITH PT'S CONDITION, NEW ORDER FOR LAB AND CT HEAD WITHOUT CONTRAST.
[2019-01-26 08:00] VITALS: BP 158/83
--- NOTE | 2019-01-26 10:34 | NUR ---
pt very loud and makes statements of you are killing me and i'm going to . son here and reports this is normal for pt to be negative and yell out at others.dr.de sarah rene has been here and spoken to pt and son.pt has been given ativan 1mg for aggitation crushed per peg for mri and ct test. here and ordered for pt to be transfered to acute for evaluation due to dropping hemaglobin and altered mental status.
--- NOTE | 2019-01-26 12:15 | NUR ---
Pt nurses informed team that pt is to dc to acute today. SW faxed final completed home INR machine order form back to [facility] today.
[2019-01-26 13:01] VITALS: BP 121/55
--- NOTE | 2019-01-26 13:28 | NUR ---
REPORT GIVEN TO TELLY ON TELE. PT TO TRANSFERR TO 208. PT IS CALM AND ANSWERS QUESTIONS WITH YES AND NO SHAKING OF HIS HEAD.
== END 2019-01-26 13:29 | disposition short-term general hospital (02) | DRG 65 ==
LOC: M.REH 13:24
PROVIDERS: Internal Medicine; ADMIT Physical Medicine & Rehabilitation
DX: I63.9 Cerebral infarction, unspecified (principal); I48.20 Chronic atrial fibrillation, unspecified; R13.10 Dysphagia, unspecified; R27.0 Ataxia, unspecified; R47.1 Dysarthria and anarthria; G46.3 Brain stem stroke syndrome; G47.33 Obstructive sleep apnea (adult) (pediatric); I25.10 Atherosclerotic heart disease of native coronary artery without angina pectoris; K21.9 Gastro-esophageal reflux disease without esophagitis; R49.0 Dysphonia; I10 Essential (primary) hypertension; E11.649 Type 2 diabetes mellitus with hypoglycemia without coma; K59.00 Constipation, unspecified; Z95.2 Presence of prosthetic heart valve; Z88.8 Allergy status to other drugs, medicaments and biological substances; Z95.1 Presence of aortocoronary bypass graft; Z79.899 Other long term (current) drug therapy; Z79.82 Long term (current) use of aspirin; Z79.01 Long term (current) use of anticoagulants; Z79.4 Long term (current) use of insulin; Z79.51 Long term (current) use of inhaled steroids; Z87.891 Personal history of nicotine dependence; Z93.1 Gastrostomy status

== ENCOUNTER 2019-01-26 13:30 | Inpatient (IN) | payer OTHER ==
[~2019-01-26] VITALS: Ht 177.8 cm; Wt 68.5 kg
--- NOTE | ~2019-01-26 | PROC ---
[facility] [address] [place] [address] PROCEDURE REPORT Name: YUSEF OLSON Room: [address] IN ..#: [id number] Admission: 01/26/19 Attend Phys: Amilcar Paytono Discharge: Date of : 45 Report #: [id number] THIS REPORT FOR: //name// For GI report, please see the Provation report in Perceptive 7 content. By: 0656Medical Records Staff SHAYLA /KAMILLE
--- NOTE | ~2019-01-26 | PROC ---
[facility] [address] [place] [address] PROCEDURE REPORT Name: YUSEF OLSON Room: [address] IN ..#: [id number] Admission: 01/26/19 Attend Phys: Amilcar Paytono Discharge: Date of : 45 Report #: [id number] THIS REPORT FOR: //name// For GI report, please see the Provation report in Perceptive 7 content. By: 0644Medical Records Staff SHAYLA /KAMILLE
[~2019-01-26 13:30] MED LIST: AMARYL2 M1 PER TUBE; ASPIRIN PER TUBE; CARVEDILOL12.5 MG PER TUBE; COUMADIN 5 MG TA5 M1 PER TUBE; ENOXAPARIN100 MG/11 SUBQ; FISH OIL 1,001000 M3 PO; PREVACID30 MG PER TUBE; PRINIVIL20 M1 PER TUBE; PROAIR HFA8.5 GM INH; ROSUVASTATIN CA10 MG PER TUBE
[2019-01-26 16:01] VITALS: BP 116/59
--- NOTE | 2019-01-26 16:57 | 2DMMODE ---
[place] [address] 2 D/M-MODE ECHOCARDIOGRAM Name: YUSEF OLSON Room: [address] IN [facility]#: [id number] Admission: 01/26/19 Attend Phys: Amilcar linton Sa Discharge: Date of : 45 Date of Service: 01/26/19 1657 Report #: [id number] THIS REPORT FOR: //name// APPROVED REPORT Study performed: 01/26/2019 15:58:09 EXAM: Comprehensive 2D, Doppler, and color-flow Echocardiogram Patient Location: In-Patient Room #: [facility] Status: routine BSA: 1.90 HR: 84 bpm BP: 121/55 mmHg Rhythm: Atrial Fibrillation Other Information Study Quality: Good Indications CVA/TIA Atrial Fibrillation Echo Enhancing Agent Indication: Rule out Shunt Agent(s) / Amount(s) Used: Agitated Saline 10 cc 2D Dimensions IVSd: 11.86 (7-11mm) LVOT Diam: 18.18 (18-24mm) LVDd: 45.22 mm PWd: 9.31 (7-11mm) Ascending Ao: 43.54 (22-36mm) LVDs: 33.28 (25-40mm) Aortic Root: 33.89 mm Volumes Left Atrial Volume (Systole) LA ESV Index: 49.50 mL/m2 Aortic Valve AoV Peak Oscar.: 1.89 m/s AO Peak Gr.: 14.36 mmHg LVOT Max P.88 mmHg AO Mean Gr.: 7.26 mmHg LVOT Mean P.64 mmHg LVOT Max V: 1.72 m/s AO V2 VTI: 28.83 cm LVOT Mean V: 1.09 m/s RICHARDSON (VTI): 2.42 cm2 LVOT V1 VTI: 26.84 [place] [address] 2 D/M-MODE ECHOCARDIOGRAM Name: YUSEF OLSON Polly Room: [address] IN ..#: [id number] Admission: 01/26/19 Attend Phys: Amilcar linton Sa Discharge: Date of : 45 Date of Service: 01/26/19 1657 Report #: [id number] Willacy: 1.61 m/s2 AI PHT: 672.96 ms Mitral Valve MV Decel. Time: 134.68 ms MV E Max Oscar.: 1.20 m/s MV PHT: 39.06 ms MVA (PHT): 5.63 cm2 TDI E/Lateral E': 13.33 E/Medial E': 15.00 Medial E' Oscar.: 0.08 m/s Lateral E' Oscar.: 0.09 m/s Pulmonary Valve PV Peak Oscar.: 0.84 m/s PV Peak Gr.: 2.80 mmHg Tricuspid Valve RAP Estimate: 5.00 mmHg TR Peak Gr.: 28.70 mmHg RVSP: 33.00 mmHg PA Pressure: 33.00 mmHg Left Ventricle The left ventricle is normal size. There is normal LV segmental wall motion. Mild concentric left ventricular hypertrophy. Left ventricular systolic function is normal. LVEF is 50-55%. Transmitral Doppler flow pattern suggests restrictive physiology. Right Ventricle The right ventricle is normal size. The right ventricular systolic function is normal. Atria Left atrium is moderately dilated. Interatrial septum is intact without evidence of ASD or PFO. Right atrium is mildly dilated. Aortic Valve Bioprosthetic aortic valve is present. Mild aortic regurgitation. There is no aortic valvular stenosis. Mitral Valve The mitral valve is normal in structure. Trace mitral regurgitation. No evidence of mitral valve stenosis[place] [address] 2 D/M-MODE ECHOCARDIOGRAM Name: YUSEF OLSON Room: [address]#: [id number] Admission: 01/26/19 Attend Phys: Amilcar linton Sa Discharge: Date of : 45 Date of Service: 01/26/19 1657 Report #: [id number] The tricuspid valve is normal in structure. Mild tricuspid regurgitation. Mild pulmonary hypertension. Pulmonic Valve The pulmonary valve is normal in structure. There is no pulmonic valvular regurgitation. Great Vessels The aortic root is normal in size. The ascending aorta is moderately dilated. IVC is normal in size and collapses >50% with inspiration. Pericardium There is no pericardial effusion. <Conclusion> The left ventricle is normal size. Mild concentric left ventricular hypertrophy. Left ventricular systolic function is normal. LVEF is 50-55%. Transmitral Doppler flow pattern suggests restrictive physiology. Left atrium is moderately dilated. Right atrium is mildly dilated. Interatrial septum is intact without evidence of ASD or PFO. Bioprosthetic aortic valve is present. Mild aortic regurgitation. Trace mitral regurgitation. Mild tricuspid regurgitation. Mild pulmonary hypertension. IVC is normal in size and collapses >50% with inspiration. The ascending aorta is moderately dilated. <ELECTRONICALLY SIGNED> By: Uri Chin MD, FACC 01/26/19 1657 56 56 Uri Chin MD, FACC /INF
--- NOTE | 2019-01-26 18:52 | NUR ---
INITAL ASSESSMENT COMPLETED CHARTED. VSS STABLE. NIH = 0. TRACING AFIB/AFLUTTER ON MONITOR. NPO. HOURLY ROUNDING AND FALL PRECAUTIONS IN PLACE FOR PT SAFETY. CLWR.
[2019-01-26 20:00] VITALS: BP 140/83
[2019-01-27] VITALS: BP 165/77
[2019-01-27 04:00] VITALS: BP 164/101
--- NOTE | 2019-01-27 04:54 | NUR ---
ASSUMED PATIENT CARE AT 1900. ASSESSMENT COMPLETED CHARTED. VSS. PATIENT IS AFIB ON MONITOR. HOURLY ROUNDING IN PLACE FOR PATIENT SAFETY. CLWR.
--- NOTE | 2019-01-27 07:11 | NUR ---
I HAVE REVIEWED AND AGREE WITH PATRICIA HOBBS RN NURSING DOCUMENTATION.
[2019-01-27 08:00] VITALS: BP 156/92
[2019-01-27 12:00] VITALS: BP 104/59
[2019-01-27 15:02] LABS: ABSOLUTE BASOPHILS 0.1 thou/uL (0.0-0.2); ABSOLUTE EOSINOPHILS 0.1 thou/uL (0.0-0.7); ABSOLUTE MONOCYTES 1.1 thou/uL (0.0-1.2); ABSOLUTE NEUTROPHILS 8.9 thou/uL (1.6-8.1); BASOPHILS 0.6 %; EOSINOPHILS 0.5 %; HEMATOCRIT 25.9 % (42.0-52.0); HEMOGLOBIN 8.7 gm/dL (14.0-18.0); LYMPHOCYTES 9.2 %; MCH 31.3 pg (26.0-34.0); MCHC 33.5 g/dL (28.0-37.0); MCV 93.2 fL (80.0-100.0); MONOCYTES 9.8 %; MPV 9.4 fl. (7.2-11.1); NUCLEATED RBCS 0 /100WBC; PLATELET COUNT* 275 thou/uL (150-400); POLYS 79.9 %; RBC 2.78 mil/uL (4.50-6.00); WBC 11.1 thou/uL (4.0-11.0)
[2019-01-27 15:19] LABS: ALBUMIN 3.3 g/dL (3.4-5.0); CALCIUM 8.9 mg/dL (8.5-10.1); CREATININE 1.1 mg/dL (0.6-1.3); POTASSIUM 4.2 mmol/L (3.5-5.1); TOTAL BILIRUBIN 0.9 mg/dL (<0.1-1.0); TOTAL PROTEIN 6.4 g/dL (6.4-8.2)
--- NOTE | 2019-01-27 15:40 | NUR ---
Pt is A&O. Admitted from acute rehab, per medically stable to return to rehab. Updated rehabilitation assistant, consult placed. Therapies to eval. Awaiting insurance auth.
[2019-01-27 16:00] VITALS: BP 162/84
--- NOTE | 2019-01-27 18:08 | NUR ---
PT VSS, PT AFIB ON TELE, CHANGED TO MED SURG STATUS, A&OX4 BUT FORGETFUL AND AGGITATED. HOURLY ROUNDING PERFORMED. POSSESSSIONS AND CALL LIGHT WITHIN REACH. PT IS IMPULSIVE AND SITS TO THE EDGE OF BED SETTING OFF BED ALARM. PT HAS PEG TUBE FLUSH 300ML WARM TAP WATER TID. PT DIET ADVANCED TO [facility] SOFT WITH NECTAR THICK LIQUIDS. PT HAS SOME DIFFICULTY DRINKING.
[2019-01-27 20:00] VITALS: BP 150/75
[2019-01-28] VITALS: BP 155/78
[2019-01-28 04:43] LABS: INR 1.4; PROTIME 13.9 Seconds (9.20-11.50)
--- NOTE | 2019-01-28 04:44 | NUR ---
ASSUMED PATIENT CARE AT 1900. ASSESSMENT COMPLETED CHARTED. VSS. PATIENT IS MED/SURG. HOURLY ROUNDING IN PLACE FOR PATIENT SAFETY. CLWR.
[2019-01-28 04:46] LABS: ALBUMIN 2.9 g/dL (3.4-5.0); CALCIUM 8.5 mg/dL (8.5-10.1); POTASSIUM 3.7 mmol/L (3.5-5.1); TOTAL BILIRUBIN 0.8 mg/dL (<0.1-1.0); TOTAL PROTEIN 5.8 g/dL (6.4-8.2)
--- NOTE | 2019-01-28 07:14 | NUR ---
I HAVE REVIEWED AND AGREE WITH PATRICIA HOBBS RN NURSING DOCUMENTATION.
[2019-01-28 07:45] LABS: URINE BILIRUBIN NEGATIVE (Negative); URINE BLOOD NEGATIVE (Negative); URINE CLARITY CLEAR; URINE COLOR YELLOW; URINE GLUCOSE-RANDOM 1+ (Negative); URINE KETONES TRACE (Negative); URINE LEUKOCYTES-REFLEX NEGATIVE (Negative); URINE NITRITE-REFLEX NEGATIVE (Negative); URINE PROTEIN NEGATIVE (Negative); URINE UROBILINOGEN 0.2 E.U./dl (0.2-1.0)
[2019-01-28 08:00] VITALS: BP 110/56
--- NOTE | 2019-01-28 08:16 | NUR ---
Nutrition: RD following pt. Has PEG that was placed in Oct s/p CVA. Pt is eating po - Mech alt Ground and Keddie thick. 80-100% of meals consumed. Wt stable, 154#. Alb 2.9, BG 127. H/o DM, CVA, CADDO. RX: insulin, glimeperide. PEG used for RX. Has buttock wound. Physician indicated mild PCM - defer. GOALS: tight BG control, good po intake at meals. RD will follow labs, wt, po intake. Mild risk. F/u 02/04/19.
--- NOTE | 2019-01-28 10:09 | NUR ---
WOUND CARE NOTE: CONSULT RECEIVED FOR SMALL WOUND LEFT BUTTOCK. PATIENT PRESENTS WITH A SMALL, APPROXIMATELY 0.3X0.3X0.1 LESION TO THE LEFT BUTTOCK, DISTAL TO THE SACRUM. WOUND IS NOT OVER A BONY PROMINENCE. CLEANSED AREA, PATTED DRY. APPLIED BARRIER OINTMENT. AREA IS TENDER TO TOUCH. AUGUSTINE-WOUND WITH DRY FLAKEY SKIN. BELIEVE THIS MAY BE FROM FRICTION, PATIENT LIKES TO WEAR UNDERWEAR/BRIEFS. WOUND BED IS PALE, YELLOW, MOIST. NO SATELITE LESIONS, NO FOUL ODOR. SCANT AMOUNTS OF SEROUS DRAINAGE NOTED. UNABLE TO EDUCATE PATIENT AT THIS TIME, WANTING TO SLEEP. DO NOT BELIEVE THIS IS A PRESSURE ULCER. RECOMMEND Q2 HOUR TURNS BARRIER OINTMENT BID AND PRN NO BRIEFS IN BED-PATIENT DOES LIKE TO WEAR THEM
[2019-01-28 11:56] VITALS: BP 127/56
[2019-01-28 16:43] VITALS: BP 134/68
--- NOTE | 2019-01-28 18:25 | NUR ---
PT VSS, A&OX4 ALL DAY, TENDS TO BE LESS ORIENTED AT NIGHT, MED SURG STATUS. PT IS WAITING FOR RETURN TO REHAB. PT AND OT CONSULTS WERE REQ TODAY TO MOVE TOWARD REHAB. PT HAS PEG TUBE, 225ML TID WATER BOLUSES. PEG TUBE CAN BE USED FOR MEDS. PT ON MECHANICALLY SOFT DIET. NIH SCORE OF 1. STAND BY ASSIST, PT IS IMPULSIVE, HOURLY ROUNDING PERFORMED, POSSESSIONS AND CALL LIGHT WITHIN REACH.
--- NOTE | 2019-01-28 19:04 | NUR ---
REC NOTE FROM DR. KATHI AHUJA TO INFORM HOSPITALIST PT INR AT 1.4 AND TO INQUIRE ABOUT LOVENOX THERAPY. ALARM OPERATOR PHYSICIAN DR CHAUDHARY. INQUIRED TO CONDITION. INFORMED OF STROKE WITH CHRONIC AFIB AND SAID TO GIVE COUMADIN AND NOT TO WORRY ABOUT A BRIDGE.
[2019-01-28 20:00] VITALS: BP 158/77
[2019-01-29 04:15] VITALS: BP 93/47
--- NOTE | 2019-01-29 04:33 | NUR ---
ASSUMED PATIENT CARE AT 1900. ASSESSMENT COMPLETED CHARTED. VSS. PATIENT IS MED/SURG. PATIENT WAS A/O X4 BUT DROWSY FOR MOST OF SHIFT, UNTIL AROUND 0300. AROUND 0300 PATIENT BECAME CONFUSED AND AGITATED AND WAS ORIENTED ONLY TO SELF. PATIENT REORIENTED TO TIME, PLACE, AND DAY BY THIS NURSE. PATIENT CONTINUES TO REQUIRE FREQUENT REDIRECTION AND REORIENTATION.
[2019-01-29 04:37] LABS: HEMOGLOBIN 8.7 gm/dL (14.0-18.0); MCHC 32.3 g/dL (28.0-37.0); MCV 92.8 fL (80.0-100.0); MPV 9.6 fl. (7.2-11.1); RBC 2.91 mil/uL (4.50-6.00); RDW-CV 17.3 % (10.5-14.5); WBC 13.5 thou/uL (4.0-11.0)
[2019-01-29 04:42] LABS: PROTIME 22.7 Seconds (9.20-11.50)
[2019-01-29 04:55] LABS: ALBUMIN 3.1 g/dL (3.4-5.0); CALCIUM 8.8 mg/dL (8.5-10.1); CREATININE 1.1 mg/dL (0.6-1.3); POTASSIUM 3.9 mmol/L (3.5-5.1); TOTAL BILIRUBIN 1.1 mg/dL (<0.1-1.0); TOTAL PROTEIN 6.1 g/dL (6.4-8.2)
[2019-01-29 04:56] LABS: INR 2.3
[2019-01-29 08:14] LABS: URINE BILIRUBIN NEGATIVE (Negative); URINE BLOOD NEGATIVE (Negative); URINE CLARITY CLEAR; URINE COLOR YELLOW; URINE GLUCOSE-RANDOM TRACE (Negative); URINE KETONES TRACE (Negative); URINE LEUKOCYTES-REFLEX NEGATIVE (Negative); URINE NITRITE-REFLEX NEGATIVE (Negative); URINE PROTEIN NEGATIVE (Negative); URINE UROBILINOGEN 0.2 E.U./dl (0.2-1.0)
[2019-01-29 08:15] VITALS: BP 148/76
[2019-01-29 11:33] VITALS: BP 129/62
--- NOTE | 2019-01-29 14:24 | CON ---
[address] [address] CONSULTATION Name: YUSEF OLSON Polly Room: [address] IN .R.#: [id number] Admission: 01/26/19 Attend Phys: Amilcar Philippe Discharge: Date of : 45 Report #: [id number] THIS REPORT FOR: //name// CC: Amilcar Blackwell DATE OF SERVICE: 01/27/2019 HISTORY OF PRESENT ILLNESS: This is a 73-year-old male patient who is extremely angry. He has dysarthria from his stroke. He is difficult to understand anyway, but he was extremely angry. He wants to go home and he was complaining a lot, but I could not understand fully what he is complaining about, but this is something which happened in last few days. He will not provide me that much history because of his anger, so lot of history I got from the record. I have some records from [facility]. It looks like this patient has a history of chronic atrial fibrillation. Record indicates that he also had an aortic wall replaced. He also has a pretty severe disease, especially in the vertebral artery system. 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 He has been here from 12/2018 and looks like his INR has fluctuated, going from 1.5 to 4.2. I cannot get a history if he has become worst recently or not for sure, but whatever I can tell from him he said he is actually becoming better clinically. I do not have the MRI films from [facility] and the only thing I have is a small impression in the discharge summary. REVIEW OF SYSTEMS: Indicate that he has been seen here by multiple other consultants. He has been seen by rehab. He was seen by GI. He apparently has a history of duodenal ulcer. He apparently has a history of sleep apnea and he is on CPAP. That is the main history I can get in this patient. PAST MEDICAL HISTORY: Positive for atrial fibrillation and stroke. FAMILY HISTORY: Unremarkable. SOCIAL HISTORY: He does not smoke or drink alcohol. PHYSICAL EXAMINATION: The patient's examination was very limited because he was angry and he was not able to cooperate. He is alert and responsive. His speech is somewhat difficult to understand. He moves all 4 extremities. He does have difficulty with ambulation. That is all the examination he is allowed. Heart appeared to be irregular, but no respiratory difficulty or rhonchi were noticed. Blood pressure is 104/59, respiration is 18, pulse is 97, and temperature is 98.1. His records from [place] were reviewed. IMPRESSION: This patient has vertebral artery problems, which probably caused [facility] [address] [place] [address] CONSULTATION Name: YUSEF OLSON Room: [address] IN [facility]#: [id number] Admission: 01/26/19 Attend Phys: Amilcar Philippe Discharge: Date of : 45 Report #: [id number] the lateral medullary syndrome, but the patient also has multiple other CVAs and those are probably because of atrial fibrillation. We will try to examine the patient tomorrow, but I do not think I have much to add except continue the anticoagulation in this patient. I will try to again talk to him, but I reviewed the records and it looks like lot of workup was already done in [facility]. Thank you very much for this referral and we will follow the patient along with you. <ELECTRONICALLY SIGNED> By: Glenroy Richard MD 01/29/19 1424 1459 [id number] Richard MD /nt
[2019-01-29 15:21] VITALS: BP 95/44
[2019-01-29 20:00] VITALS: BP 108/58
[2019-01-30 02:10] LABS: HEPATITIS B SURFACE AG Negative (Negative)
[2019-01-30 04:00] VITALS: BP 105/63
[2019-01-30 05:08] LABS: PROTIME 35.4 Seconds (9.20-11.50)
[2019-01-30 05:12] LABS: HEMATOCRIT 25.6 % (42.0-52.0); HEMOGLOBIN 8.4 gm/dL (14.0-18.0); MCH 30.2 pg (26.0-34.0); MCV 91.5 fL (80.0-100.0); MPV 9.2 fl. (7.2-11.1); RBC 2.8 mil/uL (4.50-6.00); RDW-CV 17.3 % (10.5-14.5); WBC 12.4 thou/uL (4.0-11.0)
[2019-01-30 05:16] LABS: INR 3.6
[2019-01-30 05:29] LABS: CALCIUM 8.6 mg/dL (8.5-10.1); CREATININE 1.4 mg/dL (0.6-1.3); POTASSIUM 3.6 mmol/L (3.5-5.1); TOTAL PROTEIN 6.1 g/dL (6.4-8.2)
--- NOTE | 2019-01-30 07:20 | NUR ---
CHANGE OF SHIFT, NBEDSIDE REPORT GIVEN PATIENT SEEN AT BEDSIDE, IN BED ASLEEP ASSUMED PATIENT CARE
[2019-01-30 08:00] VITALS: BP 130/68
--- NOTE | 2019-01-30 18:50 | NUR ---
PATIENT MS STATUS TRANSFER TO [address] REPORT GIVEN TO ALEKSANDR SALAZAR PERSONAL BELONGINGS SENT WITH PATIENT FAMILY MEMBER JOHN NOTIFIED
[2019-01-30 20:00] VITALS: BP 115/66
[2019-01-31 01:58] VITALS: BP 110/83
[2019-01-31 08:00] VITALS: BP 116/68
--- NOTE | 2019-01-31 08:07 | NUR ---
Transfer to floor at 1900. He is confused. He was impulsive and trying to get out of bed. Haldol given. He has slept well after medication.
[2019-01-31 09:11] LABS: HEMATOCRIT 24.5 % (42.0-52.0); HEMOGLOBIN 8.2 gm/dL (14.0-18.0); MCH 30.6 pg (26.0-34.0); MCHC 33.6 g/dL (28.0-37.0); MCV 90.9 fL (80.0-100.0); MPV 9.1 fl. (7.2-11.1); RBC 2.69 mil/uL (4.50-6.00); WBC 9.8 thou/uL (4.0-11.0)
[2019-01-31 09:21] LABS: PROTIME 45.2 Seconds (9.20-11.50)
[2019-01-31 09:25] LABS: INR 4.7
[2019-01-31 09:26] LABS: ALBUMIN 2.7 g/dL (3.4-5.0); CALCIUM 8.4 mg/dL (8.5-10.1); CREATININE 1.3 mg/dL (0.6-1.3); MAGNESIUM 2.2 mg/dL (1.8-2.4); POTASSIUM 3.6 mmol/L (3.5-5.1); TOTAL BILIRUBIN 0.7 mg/dL (<0.1-1.0)
--- NOTE | 2019-01-31 14:57 | NUR ---
BOWEL PREP AND COLONOSCOPY CANCELLED PT INR ELEVATED.
--- NOTE | 2019-01-31 16:06 | NUR ---
PT RESTING IN BED THROUGHOUT SHIFT. REPOSITIONED FREQUENTLY. PT DENIES NEEDS. PT ASSISTED WITH MEALS. ALVAREZ CATH DRAINING CLEAR YELLOW URINE. INCONTINENT OF BM. PT CONFUSED AT TIME
[2019-01-31 16:15] VITALS: BP 140/62
[2019-01-31 20:45] VITALS: BP 130/63
[2019-02-01 04:46] LABS: HEMOGLOBIN 8.2 gm/dL (14.0-18.0); MCH 29.8 pg (26.0-34.0); MCHC 32.7 g/dL (28.0-37.0); MPV 8.9 fl. (7.2-11.1); RBC 2.75 mil/uL (4.50-6.00); RDW-CV 17.2 % (10.5-14.5); WBC 10.2 thou/uL (4.0-11.0)
[2019-02-01 04:50] LABS: INR 4.4; PROTIME 42.6 Seconds (9.20-11.50)
[2019-02-01 05:00] LABS: CALCIUM 8.4 mg/dL (8.5-10.1); CREATININE 1.3 mg/dL (0.6-1.3); MAGNESIUM 2.1 mg/dL (1.8-2.4); POTASSIUM 3.7 mmol/L (3.5-5.1)
--- NOTE | 2019-02-01 06:51 | NUR ---
Patient had been more oriented at the start of shift. He was coperative and talkative. Later after midnight he has been more fidgety,pulling at the gaines cath. Gaines has dark urine and it is thick. He has been incontinent of bowel and it is dark,thick and sticky. He has been turned every 2 hours. L buttock has open area that we are puttng barrier cream on. He has set off the bed alarm frequently. He is calmer at this moment. INR is still elevated.
[2019-02-01 07:50] VITALS: BP 120/59
--- NOTE | 2019-02-01 14:42 | EKG ---
[place] [address] ELECTROCARDIOGRAM REPORT Name: ALIYAH OLSONCAMILA Matias Room: [address] ADM IN M.R.#: [id number] Admission: 01/26/19 Attend Phys: Amilcar Philippe Discharge: Date of : 45 Report #: [id number] THIS REPORT FOR: //name// [facility] Test Date: 2019-02-01 Test Time: 12:26:06 Pat Name: YUSEF OLSON Department: Room: [facility] Gender: M Tire Retreader: : 1945 Requested By: Sukhi Goss Order Number: [id number] Diego MD: Mc Blanco Measurements Intervals [place] Rate: 47 P: IA: QRS: -68 QRSD: 149 T: 127 QT: 512 QTc: 453 Interpretive Statements Atrial fibrillation Nonspecific IVCD with LAD LVH with secondary repolarization abnormality Baseline wander in lead(s) I,aVL No previous ECG available for comparison Electronically Signed On 02-01-2019 14:42:22 REGULATORY LEADER by Mc Blanco [email or web address] <ELECTRONICALLY SIGNED> By: Mc Blanco MD, [facility] 02/01/19 1442 1226 1226 Mc Blanco MD, [facility] /EPI
--- NOTE | 2019-02-01 16:47 | NUR ---
PT REMAINED ALERT TO SELF. PT HAS BEEN PULLING AT ALVAREZ, STAT LOCK REPLACED NEEDED. ALVAREZ DRAINING APPROPRIATELY. HEPARIN DRIP STARTED. CT ABD ORDERED. PT VOMITED, MEDS GIVEN ORDERED. TUBE FEEDING STOPPED, PT NPO. FALL RISK PRECAUTIONS IN PLACE. HOURLY ROUNDING COMPLETED. WILL CONTINUE TO MONITOR.
--- NOTE | 2019-02-01 17:24 | NUR ---
PTT 124.2, WILL HOLD FOR 1 HOUR PER PROTOCOL. WILL CONTINUE TO MONITOR.
[2019-02-01 17:25] VITALS: BP 143/63
--- NOTE | 2019-02-01 17:44 | NUR ---
REPORT GOT FROM MARQUES. PT LUIS MIGUEL. ANTONIO PATENT. WILL CONTINUE TO MONITOR.
[2019-02-01 19:30] VITALS: BP 138/75
[2019-02-02 04:44] LABS: HEMATOCRIT 25.3 % (42.0-52.0); HEMOGLOBIN 8.2 gm/dL (14.0-18.0); MCH 29.5 pg (26.0-34.0); MCHC 32.4 g/dL (28.0-37.0); MCV 91.1 fL (80.0-100.0); RBC 2.78 mil/uL (4.50-6.00); RDW-CV 17.1 % (10.5-14.5); WBC 9.7 thou/uL (4.0-11.0)
[2019-02-02 04:55] LABS: ALBUMIN 2.6 g/dL (3.4-5.0); CALCIUM 8.5 mg/dL (8.5-10.1); POTASSIUM 3.7 mmol/L (3.5-5.1); TOTAL BILIRUBIN 0.5 mg/dL (<0.1-1.0); TOTAL PROTEIN 5.6 g/dL (6.4-8.2)
[2019-02-02 06:22] LABS: INR 2.4
[2019-02-02 07:35] VITALS: BP 157/65
--- NOTE | 2019-02-02 07:45 | NUR ---
PATIENT HAS BEEN VERY ANXIOUS DURING MOST OF THE NIGHT AND PULLING OUT HIS IV'S AND TRYING TO PULL OUT HIS CATHETER AND PULLING ON PEG TUBE. NOTIFIED AND NEW ORDERS GIVEN TO USE MITTS PRN AND FOR A SITTER IN ROOM. MITTS WERE PUT ON PATIENT AND PATIENT PULLED THEM OFF. ANXIETY MEDICATIONS GIVEN AND DID APPEAR TO HELP CALM PATIENT DOWN. SITTER AT BEDSIDE AND PATIENT SLEEPING AT THIS TIME. NEW IV INSERTED IN RIGHT AC-NS @75ML/HR AND HEPARIN DRIP RUNNING AT 6.02 UNITS PER HR. PEG TUBE IN PLACE AND ALVAREZ TO DEPENDENT DRAINAGE WITH KIM COLORED URINE. FALL PRECAUTIONS IN PLACE AND HOURLY ROUNDS MADE. WILL CONTINUE WITH PLAN OF CARE AND NURSING TO MONITOR.
[2019-02-02 08:29] LABS: BE 3.5 mmol/L (-2 to +3); PCO2 40.3 mmHg (35.0-45.0); PO2 85.5 mmHg (75.0-100.0); pH 7.455 (7.340-7.450)
--- NOTE | 2019-02-02 09:56 | NUR ---
PT TRANSFERRED TO TELE. REPORT GIVEN TO NEW NURSE. FALL RISK PRECAUTIONS IN PLACE. HOURLY ROUNDING COMPLETED.
[2019-02-02 11:30] VITALS: BP 140/74
--- NOTE | 2019-02-02 11:49 | NUR ---
PT.HAD BEEN ON MED/SURG FLOOR SINCE 01/30,WHEN HE WAS TRANSFERRED OFF TELEMETRY FLOOR. HIS CONFUSION AND AGITATION WAXED AND WANED BUT WAS GETTING BETTER. HE VOMITED YESTERDAY AND CONCERN FOR ASPIRATION PNEUMONIA. HE WAS VERY AGITATED AND CONFUSED AGAIN OVER NIGHT. TRANSFERRED BACK TO TELE FLOOR TODAY. CM WILL CONTINUE TO FOLLOW.
--- NOTE | 2019-02-02 16:29 | NUR ---
PT RECEIVED FROM JOINT&SPINE. ASSUMED PT CARE AT 1000, AOX TO SELF, O2 SAT 90'S RA. TRACING AFIB ON TELE. PT ACCU CHECK. PT HAS PEG TUBE. PT NPO, PT ON BOWEL PREP. PT FOR EGD/COLONOSCOPY TOMMOROW.PT DPOA SIGNED CONSENT. PT HAS HEPARIN DRIP. PT ON ANTIBIOTIC. HAS ALVAREZ CATH DRAINING WELL, Q2 TURN, BED ALARM, PRN SITTER, CALL LIGHT WITHIN REACH, CALL LIGHT WITHIN REACH, WILL CONTINUE TO MONITOR
[2019-02-02 20:00] VITALS: BP 135/62
[2019-02-03 00:37] VITALS: BP 143/61
[2019-02-03 04:20] VITALS: BP 152/63
[2019-02-03 05:57] LABS: INR 2.4; PROTIME 23.9 Seconds (9.20-11.50)
--- NOTE | 2019-02-03 06:04 | NUR ---
ASSUMED PATIENT CARE AT 1900. ASSESSMENT COMPLETED CHARTED. VSS. PATIENT IS AFIB ON MONITOR. BOWEL PREP COMPLETED BEFORE MIDNIGHT, TOLERATED WELL. PATIENT HEART RATE DROPS INTO THE 30'S AT TIMES, PATIENT ASYMPTOMATIC. HOURLY ROUNDING IN PLACE FOR PATIENT SAFETY. CLWR.
[2019-02-03 08:00] VITALS: BP 134/47
--- NOTE | 2019-02-03 10:11 | NUR ---
WOUND CARE NOTE: REASSESSMENT PARTIAL THICKNESS LESION TO THE LEFT BUTTOCK IS HEALING. NEW EPITHELIUM PRESENT TO AUGUSTINE-WOUND. MACERATION TO AUGUSTINE-WOUND. PATIENT ON BOWEL PREP, FREQUENTLY STOOLING. WOUND MEASURES 0.2X0.2X0.1. PINK, MOIST WOUND BED. AREA WAS CLEANSED. APPLIED BARRIER OINTMENT. RECOMMEND CONTINUE WITH CURRENT TREATMENT PLAN.
[2019-02-03 12:00] VITALS: BP 164/74
--- NOTE | 2019-02-03 12:00 | NUR ---
ASSUMED PT CARE AT 0730, FULL ASSESMENT DONE CHARTED. PT A/O X3 BUT CONFUSED AT TIMES. PT IS HAVING HALLUCINATIONS. ATTEMPTS TO GET OUT OF BED FREQUENTLY, PULLS AT LINES, TUBES, UNSTEADY, ALVAREZ IN PLACE, DRAINING SMALL AMOUNT OF CLOUDY YELLOW URINE. PT NPO AND HAS TUBE FEEDING ON STANDBY FOR COLONOSCOPY TODAY. HEPARIN GTT ON STANDBY FOR SAME. WILL CONTINUE WITH PLAN OF CARE.
[2019-02-03 18:55] VITALS: BP 135/70
--- NOTE | 2019-02-03 19:18 | NUR ---
PT RETURNED FROM COLONOSCOPY AT APPROX 1850. PT IS PLEASANT, SLIGHTLY CONFUSED, VSS, AFIB ON THE MONITOR. ATTEMPTING TO EAT ICE CHIPS NOW. FAMILY AT BEDSIDE. FALL PRECAUTIONS IN PLACE. REPORT GIVEN TO KARELY SALAZAR.
[2019-02-03 20:00] VITALS: BP 168/67
[2019-02-04] VITALS (7 sets, daily range): BP systolic 119–169; BP diastolic 53–83
[2019-02-04 02:26] LABS: HEMATOCRIT 22.5 % (42.0-52.0); HEMOGLOBIN 7.5 gm/dL (14.0-18.0); MCH 29.9 pg (26.0-34.0); MCHC 33.5 g/dL (28.0-37.0); MCV 89.3 fL (80.0-100.0); MPV 7.9 fl. (7.2-11.1); RBC 2.51 mil/uL (4.50-6.00)
[2019-02-04 02:41] LABS: ALBUMIN 2.7 g/dL (3.4-5.0); CALCIUM 8.3 mg/dL (8.5-10.1); CREATININE 1.2 mg/dL (0.6-1.3); MAGNESIUM 1.7 mg/dL (1.8-2.4); POTASSIUM 3.3 mmol/L (3.5-5.1); TOTAL BILIRUBIN 0.5 mg/dL (<0.1-1.0); TOTAL PROTEIN 5.4 g/dL (6.4-8.2)
--- NOTE | 2019-02-04 06:40 | NUR ---
ASSUMED PATIENT CARE AT 1900. ASSESSMENT COMPLETED CHARTED. VSS. PATIENT IS A-FIB ON THE MONITOR. HOURLY ROUNDING IN PLACE FOR PATIENT SAFETY. CLWR.
--- NOTE | 2019-02-04 17:40 | NUR ---
started potassium iv at ordered rate of 50 mls/hr. pt did not tolerate, was trying to pull iv out, trying to climb out of bed d/t burning. reduced rate to 25 mls/hr. pt still not tolerating. spoke with dr gill and got order to change to per peg.
--- NOTE | 2019-02-04 17:47 | NUR ---
pt has been impulsive all day, climbing out of bed very quickly, bed alarm on and nurses in there promptly, pt not very easily redirected, very adament about going for a walk once standing. gait belt and walker used for ambulation but pt still very unsteady, weaves and crosses legs, leans to the side. pt sat at nurses station for a while in recliner this afternoon. pt has moments of very agitated talking, gets irritated with cares occasionally. spoke with dr gill regarding pt safety concerns, order for sitter received.
--- NOTE | 2019-02-04 19:10 | NUR ---
PT REFUSING BLADDER SCANS
--- NOTE | 2019-02-05 01:18 | NUR ---
ASSUMED CARE OF PT AT 1900. PT IS VERY CONFUSED AND VIOLENT. PT HAS BEEN HITTING THE BOOSTER PUMP OILER AND ATTEMPTING TO HIT ME. PT ALSO PULLED PEG TUBE APART AND ATTEMPTED TO PULL OUT IV'S. PT WAS GIVEN HALDOL AND ATIVAN WHICH HAS SEEMED TO CALM HIM DOWN AT THIS TIME. PT IS IN A FIB ON THE TELEMETRY. PT IS RESTING COMFORTABLY IN BED. RESPIRATIONS ARE EVEN AND NONLABORED. WILL CONTINUE TO MONITOR PT.
[2019-02-05 04:15] LABS: ABSOLUTE BASOPHILS 0.1 thou/uL (0.0-0.2); ABSOLUTE EOSINOPHILS 0.3 thou/uL (0.0-0.7); ABSOLUTE MONOCYTES 0.7 thou/uL (0.0-1.2); BASOPHILS 0.9 %; EOSINOPHILS 3.6 %; HEMATOCRIT 24.3 % (42.0-52.0); HEMOGLOBIN 7.9 gm/dL (14.0-18.0); LYMPHOCYTES 13.5 %; MCHC 32.4 g/dL (28.0-37.0); MCV 89.3 fL (80.0-100.0); MONOCYTES 10.5 %; MPV 8.3 fl. (7.2-11.1); NUCLEATED RBCS 0 /100WBC; PLATELET COUNT* 239 thou/uL (150-400); POLYS 71.5 %; RBC 2.72 mil/uL (4.50-6.00); RDW-CV 17.2 % (10.5-14.5)
[2019-02-05 04:39] LABS: ALBUMIN 2.8 g/dL (3.4-5.0); CALCIUM 8.5 mg/dL (8.5-10.1); CREATININE 1.2 mg/dL (0.6-1.3); POTASSIUM 3.6 mmol/L (3.5-5.1); TOTAL BILIRUBIN 0.5 mg/dL (<0.1-1.0); TOTAL PROTEIN 5.8 g/dL (6.4-8.2)
[2019-02-05 04:45] VITALS: BP 175/98
[2019-02-05 07:55] VITALS: BP 159/84
--- NOTE | 2019-02-05 09:37 | NUR ---
ASSUMED CARE AFTER REPORT APPROX 0730. ORIENTED TO SELF, INTERMITTENT AGITATION AND IMPULSIVENESS. ATTEMPTS TO COMMUNICATE NEEDS, LANGUAGE NON-SPECIFIC AND DIFFICULT TO UNDERSTAND. APPEARS TO UNDERSTAND COMMANDS AND FOLLOWS SOME COMMANDS. BRIEF NIH ASSESSMENT INTERRUPTED WITH AGITATION. ASSESSMENT COMPLETE. VS OBTAINED BP 159/84, O2 SATS 96% RA. 1:1 OBSERVATION.
--- NOTE | 2019-02-05 10:34 | NUR ---
DR. FROST TO ROOM FOR PATIENT ASSESSMENT. PATIENT RECENTLY GIVEN PRN FOR AGITATION PT WAS PULLING AT MITTENS, SWEARING AND STRIKING WITH CARES. OT NOW AT BEDSIDE FOR THERAPY. PATIENT COOPERATIVE AT THIS TIME.
--- NOTE | 2019-02-05 11:15 | NUR ---
MEDS CRUSHED AND ENTERED INTO PEG TUBE AFTER RESIDUAL FOUND OT BE <30 MLS. FLUSHED WITH 225 MLS H2O. TF RESUMED AT 40 MLS/HR VIA PUMP. TOLERATING WELL. CONTINUES TO MAKE "BATTING THE AIR" MOTIONS AND AGITATED VERBALIZATIONS INTERMITTENTLY WITH RESTING PEACEFULLY. 1:1 OBSERVIATION BY THIS NURSE.
--- NOTE | 2019-02-05 11:22 | NUR ---
DESIGNATED VB NET PROGRAMMER NAMED JOHN IS A FRIEND TO PATIENT. PATIENT'S SON YONATAN OLSON IS AT BEDSIDE NOW AND IS ASKING FOR HELP WITH ATTAINING ADVANCE DIRECTIVE. CONSULT FOR CASE MANAGEMENT TO BE ORDERED. YONATAN STATES THAT KENYA OLSON WOULD BE PREFEREABLE FOR AUTHORIZED CONTACT BECAUSE SHE IS FAMILIAR WITH MEDICAL [employer]MINILOBY.
[2019-02-05 12:20] VITALS: BP 160/73
--- NOTE | 2019-02-05 14:11 | NUR ---
PATIENT RESISTANT TO TURNS. EDUCATION PROVIDED ABOUT SKIN BREAKDOWN AND PRESENCE OF PRESSURE ULCER. PATIENT CONTINUES RESISTANCE TO TURNS.
--- NOTE | 2019-02-05 16:30 | NUR ---
NIH ASSESSMENT SCORES ARE NOT INDICATIVE OF TRUE NIH PATIENT WAS UNABLE TO COMPLETE EACH ONE D/T AGITATION.
--- NOTE | 2019-02-05 18:00 | NUR ---
MEDS GIVEN PER PEG TUBE AFTER RESIDUAL CHECKED, <10 MLS RESIDUAL FOUND. PATIENT TOLERATED WELL
--- NOTE | 2019-02-05 18:45 | NUR ---
PATIENT LOC PREVENTED EATING FOOD BY MOUTH. PATIENT WAS DROWSY OR UNCOOPERATIVE AT BREAKFAST AND LUNCH. AT DINNER, PATIENT STATES "I'M HUNGRY." PATIENT LOC BETTER AND MORE INTERACTIVE. PATIENT GIVEN A SMALL BITE OF ENSURE PUDDING. PATIENT NOT ABLE TO SWALLOW WITHOUT CHOKING. PATIENT ABLE TO CLEAR THROAT ON OWN. NO FURTHER FOOD ATTEMPTED. PATIENT WAS OFFERED THICKENED LIQUID THROUGHOUT THE DAY WHEN AWAKE BUT NOT INTERESTED IN DRINKING. TF/FLUSHES GIVEN ORDERED.
[2019-02-05 20:00] VITALS: BP 143/82
[2019-02-06] VITALS: BP 155/80
[2019-02-06 04:00] VITALS: BP 144/85
--- NOTE | 2019-02-06 05:31 | NUR ---
ASSUMED CARE OF PT AFTER REPORT AT 1930. PT A&OX1-2. NOT ORIENTED TO SITUATION & TIME. CONFUSED AND WITH EPISODE OF VISUAL HALLUCINATIONS. GARBLED SPEECH. VSS. PHYSICAL ASSESSMENT COMPLETED AND CHARTED. PT WAS CALM AT FIRST HALF OF THE SHIFT BUT BECAME RESTLESS AND TRIED TO PULL ALVAREZ, PEG TUBE & IV OUT. REORIENTATION & REDIRECTION DONE BY THIS NURSE. ATIVAN GIVEN. ON 1:1 SITTER. PT WITH PEG TUBE PATENT & INTACT. PT WITH ALVAREZ TO DEPENEDENT DRAIN. PT TURNED TO SIDES BUT REFUSED AT TIMES EVEN AFTER EDUCATION WAS GIVEN. THIS NURSE ATTEMPTED TO OBTAIN MRSA SWAB ORDERED BUT PT REFUSED/RESISTANT. NIH CHARTED. FALL PRECAUTIONS IN PLACE.
[2019-02-06 08:00] VITALS: BP 146/72
--- NOTE | 2019-02-06 08:00 | NUR ---
AM ASSESSMENT COMPLETE, DEFER TO COMPUTER CHARTING. RESTLESS, IRRITABLE AND ANXIOUS THIS AM. DENIES PAIN OR DIZZINESS AT THIS TIME. ALERT, OREINTED TO SELF AND SITUATION AT TIMES - APPEARS TO BE HAVING PERIODS OF VISUAL HALLUCINATIONS, ABLE TO REORIENTATE PATIENT AT TIMES. BINDERY LIBRARY TECHNICAL ASSISTANT TRACKING AFIB. ROOM AIR. HOB ELEVATED, TUBE FEEDING INFUSING. 1:1 NURSE AT BEDSIDE FOR SAFETY. WILL CONTINUE TO MONITOR.
--- NOTE | 2019-02-06 10:07 | PATH ---
[address] [address] PATHOLOGY RPT PROCEDURE Name: KG GILES Room: [address] IN [facility].#: [id number] Admission: 01/26/19 Date of : 45 Discharge: Report #: [id number] Path Case #: [id number] [facility] Accession Number: [id number] . 01 Material submitted: . PART A: stomach - GASTRIC BIOPSIES FOR H-PYLORIC PART B: cecum - CECAL POLYP PART C: colon - ASCENDING COLON POLYP. Modifiers: ascending PART D: rectum - BIOPSY OF RECTAL ULCER . 01 Clinical history: . None provided . 02 Diagnosis: A. Stomach, biopsy: - Mild chronic inflammation, non-specific. - No evidence of Helicobacter pylori on immunoperoxidase stain. . B. Colon, cecum, biopsy: - Adenomatous polyp. . C. Colon, ascending, biopsy: - Adenomatous polyp. . D. Colon, "rectal ulcer", biopsy: - Tiny fragment of hyperplastic colonic mucosa. - Separate fragments of acute ulcer exudate. (MERLIN/elsie; 02/05/2019) LBQ 02/05/2019 1253 Local . 02 Electronically signed: . Emre Garcia MD, Pathologist NPI- [id number] . 01 Gross description: . A. Received in formalin labeled "Aliyah Gilesmie, gastric biopsies for H. pylori," are 2 segments of mcdowell soft tissue measuring 1.1 x 0.2 x 0.2 cm in aggregate dimensions and ranging from 0.5 to 0.6 cm in maximum dimension. The specimen is submitted entirely in cassette A1. . B. Received in formalin labeled "Kg Giles, cecal polyp," is a single segment of mcdowell soft tissue measuring 0.6 cm in maximum dimension. The specimen is entirely submitted in cassette B1. . C. Received in formalin labeled "Kg Giles, ascending colon polyp," is a single segment of mcdowell soft tissue measuring 0.4 cm in maximum dimension. The specimen is entirely submitted in cassette C1[place] [address] PATHOLOGY RPT PROCEDURE Name: GILESALIYAHKG L Room: [address] IN [facility]#: [id number] Admission: 01/26/19 Date of : 45 Discharge: Report #: [id number] Path Case #: [id number] D. Received in formalin labeled "Kg Giles, biopsy of rectal ulcer," are 2 segments of mcdowell soft tissue measuring 0.7 x 0.2 x 0.1 cm in aggregate dimensions and ranging from 0.3 to 0.4 cm in maximum dimension. The specimen is submitted entirely in cassette D1. (TSD; 02/04/2019) TOB/TOB 02/04/2019 1809 Local . 02 Pathologist provided ICD-10: K29.50, D12.0, D12.2, K62.6 . 02 CPT . 102667, 826217, 614345, 011305, [id number] Specimen Comment: A courtesy copy of this report has been sent to [phone] Specimen Comment: [phone], Specimen Comment: Report sent to ,DR FROST / DR DOE Performed at: [address], [place], [place] [id number] MD Yao Nevarez MD Phone: [phone] Performed at: [facility] [address], [place], [place] [id number] MD Isaiah Wilder MD Phone: [phone]
[2019-02-06 12:00] VITALS: BP 125/58
--- NOTE | 2019-02-06 16:16 | NUR ---
PATIENT CONFUSED - ORIENTED TO SELF ONLY. PULLING AT LINES, ATTEMPTING TO GET OUT OF BED. INCONINTENT OF MULTIPLE SM LOOSE BLACK STOOLS - AUGUSTINE CARE GIVEN BARRIER CREAM APPLIED AFTER EACH STOOL. STOOL SAMPLE COLLECTED AND SENT TO LAB FOR GUIAC. APPTEMPTED EARLIER TO GIVE PATIENT SM BITE OF APPLESAUSE, PATIENT HAD DIFFICULTY SWALLOWING APPLESAUCE, FINALLY COUGING - KEPT NPO AFTER EPISDDE. TUBE FEEDING INFUSING PER ODERS, HOB ELEVATED. CONITNUES TO BE 1:1 FOR SAFETY. RESTLESS, ANXIOUS - IV ATIVAN GIVEN EARLIER, MIN RELIEF AT THIS TIME. WILL MONITOR.
[2019-02-06 16:49] VITALS: BP 150/67
--- NOTE | 2019-02-06 18:01 | NUR ---
DERMATOLOGICAL SURGEON TRACKING WITH NO CHANGE IN RHYTHM. PATIENT REMAINS CONFUSED, PULLING AT LINES AND ATTEMPTING TO GET OUT OF BED. REASSURANCE AND ATTEMPTED TO REORIENTATE PATIENT WITH NO SUCCESS. GUIAC STOOL POSTIVIE FOR BLOOD, CALL PLACED TO NOTIFY DOCTOR - DR ULLOA RETURNING CALL, NEW ORDERS RECEIVED. WILL CONTINUE WITH PLAN OF CARE.
[2019-02-06 20:00] VITALS: BP 159/74
[2019-02-07] VITALS (7 sets, daily range): BP systolic 102–156; BP diastolic 43–79
[2019-02-07 04:33] LABS: HEMATOCRIT 23.7 % (42.0-52.0); HEMOGLOBIN 7.7 gm/dL (14.0-18.0); MCHC 32.5 g/dL (28.0-37.0); MCV 89.2 fL (80.0-100.0); MPV 8.6 fl. (7.2-11.1); RBC 2.66 mil/uL (4.50-6.00); RDW-CV 17.2 % (10.5-14.5); WBC 10.4 thou/uL (4.0-11.0)
[2019-02-07 04:40] LABS: INR 2.9; PROTIME 28.6 Seconds (9.20-11.50)
[2019-02-07 04:48] LABS: CALCIUM 8.6 mg/dL (8.5-10.1); CREATININE 1.1 mg/dL (0.6-1.3); POTASSIUM 3.8 mmol/L (3.5-5.1)
--- NOTE | 2019-02-07 04:59 | NUR ---
ASSUMED CARE OF PT AFTER REPORT AT 1930. PT A&OX1-2. CONFUSED. PT APPEARS TO HAVE VISUAL HALLUCINATION TO LIKE GRABBING SOMETHING IN THE AIR. VSS. PHYSICAL ASSESSMENT COMPLETED AND CHARTED. PT ON RA. PT TRACING AFIB ON TELE. PT ALSO RESTLESS, COMBATIVE AND TRIED TO GET OUT OF BED- ATIVAN GIVEN. NIH CHARTED. PT WITH PEG TUBE ON CONTINUOUS FEEDING. PT WITH ALVAREZ TO DEPENDENT DRAIN. PT DENIES ANY PAIN OR DISCOMFORT. PT WITH EPISODE OF BLACK TARRY STOOL AT MIDNIGHT.PT ON 1:1 MURSE AT BEDSIDE FOR SAFETY. CALL LIGHT WITHIN REACH.
--- NOTE | 2019-02-07 08:11 | NUR ---
ASSUMED CARE OF PT AROUND 0715 THIS AM. REFER TO ASSESSMENT. PT SLEEPING AT THIS TIME. REPORTED FROM OTHER STAFF MEMBERS THAT PT HAS NOT SLEPT FOR A FEW DAYS. PT TOLERATING TUBE FEEDINGS. LAXATIVES HELD THIS AM D/T REPORTED THAT PT HAS BEEN HAVING DIARRHEA WITH BLOODY STOOLS. NO OTHER CONCERNS AT THIS TIME. CLWR. WCTM.
--- NOTE | 2019-02-07 16:27 | NUR ---
PT PROGRESSING TOWARDS GOALS THIS SHIFT. PT HAS HAD THREE LOOSE STOOLS THAT APPEAR BLACK AND TARRY. LAXATIVES HELD THIS AM. PT TOLERATING TUBE FEEDINGS WITH MINIMAL RESIDUALS. PT APPEARS MORE CALM AND COOPERATIVE THIS SHIFT THAN PREVIOUSLY REPORTED. NO EPISODES OF COMBATIVE OR IMPULSIVE BEHAVIOR. PT HAS NOT REQUIRED ANY PRN ANXIOLYTICS THIS SHIFT. PT UP TO CHAIR WITH PHYSICAL THERAPY. TOLERATED FOR ABOUT AN HOUR BUT C/O COCCYX PAIN AND WENT BACK TO BED AND TURNED TO SIDE. FREQUENT ORAL CARE COMPLETED THIS SHIFT D/T NPO. NO OTHER CONCERNS AT THIS TIME. CLWR. WCTM.
[2019-02-08] VITALS (7 sets, daily range): BP systolic 109–164; BP diastolic 54–83
--- NOTE | 2019-02-08 06:21 | NUR ---
PT HAS BEEN RESTLESS AND CONFUSED T/O NIGHT. PT HAS EPISODES WHERE HE YELL/MOANS OUT FOR NO EXACT REASON. PT DID C/O PAIN MID SHIFT "EVERYWHERE" TYLENOL GIVEN. PT IS LETHERGIC AND ORIENTED TO SELF AND PLACE. ALL MEDS GIVEN PER EMAR. PT IS AFIB ON TELE. ALVAREZ DRAINING CLEAR/YELLOW. PT HOB ELEVATED >30 DEGREES. PT STILL 1:1 FOR SAFETY.
--- NOTE | 2019-02-08 10:00 | NUR ---
ASSUMED CARE AFTER REPORT APPROX 0730. PATIENT A&OX4, ABLE TO EXPRESS NEEDS TO STAFF. ASSESSMENT COMPLETE, VS OBTAINED, O2 SATS 96% RA. PEDIATRIC NEUROPSYCHOLOGIST IN PLACE, AFIB. COOPERATIVE WITH CARES, WANTS TO GO HOME. SITTER PRESENT AND WILL EVALUATE THE CONTINUED NEED FOR 1;1 OBSERVATION. NA TO BATHE PATIENT. HOURLY ROUNDING FOR SAFETY, PATIENT NEEDS, STAFF NEEDS.
[2019-02-08 13:20] LABS: INR 1.7; PROTIME 17.5 Seconds (9.20-11.50)
--- NOTE | 2019-02-08 14:32 | NUR ---
CONTINUE TO FOLLOW, PT OFF UNIT FOR TESTING. SITTER HAS BEEN DC'D. REHAB RE-EVAL PENDING.
--- NOTE | 2019-02-08 17:00 | NUR ---
BLOOD TRANSFUSION COMPLETE, PATIENT TOLERATED WELL. LAB FOR HGB ORDERED. PATIENT INSISTING ON GETTING DRESSED. INFORMED PLAN OF CARE REQUIRES PATIENT TO STAY UNTIL STABLE. CURRENTLY EVAL FOR ACTIVE BLEED ONGOING. PATIENT BECAME COMBATIVE. SECURITY TO ROOM. PATIENT CALM WHEN LEFT ALONE. SITTER PRESENT IN ROOM. REFUSING ALL CARES, IV INFUSIONS, PRN MED FOR ANXIETY REFUSED. CONTINUE SITTER AND QUIET ENVIRONMENT. HOURLY ROUNDING FOR PATIENT SAFETY/NEEDS & STAFF SAFETY/NEEDS.
[2019-02-08 17:44] LABS: HEMATOCRIT 29.5 % (42.0-52.0); HEMOGLOBIN 9.6 gm/dL (14.0-18.0)
--- NOTE | 2019-02-08 22:00 | NUR ---
PT. NOTED TO BE ON THE FLOOR ON THE SIDE OF HIS BED. PT. WAS ABLE TO CRAWL OVER 2 BEDRAILS, C/O LEFT HIP PAIN, STATED HE WANTED A DRINK OF WATER. THIS RN/SITTER LEFT ROOM BRIEFLY TO GET MEDS FROM [facility], STAFF NOTIFIED THAT I WAS STEPPING OUT OF ROOM FOR A SHORT PERIOD. XRAY OF LEFT HIP TAKEN, NEGATIVE FOR ANY ACUTE ABNORMALITIES. BED ALARM ARMED AT THIS TIME, 1:[address]
[2019-02-09] VITALS (9 sets, daily range): BP systolic 94–146; BP diastolic 53–77
[2019-02-09 04:33] LABS: HEMATOCRIT 28.3 % (42.0-52.0); HEMOGLOBIN 9.4 gm/dL (14.0-18.0); MCHC 33.1 g/dL (28.0-37.0); MCV 87.7 fL (80.0-100.0); MPV 8.5 fl. (7.2-11.1); RBC 3.23 mil/uL (4.50-6.00); RDW-CV 17.2 % (10.5-14.5); WBC 11.7 thou/uL (4.0-11.0)
[2019-02-09 04:58] LABS: INR 1.5; PROTIME 15.2 Seconds (9.20-11.50)
--- NOTE | 2019-02-09 05:31 | NUR ---
PT. HAS REMAINED VERY IMPULSIVE THROUGHOUT SHIFT. SITTER AT BEDSIDE THROUGHOUT SHIFT. PT. CONSTANTLY COMPLAINING ABOUT WANTING FOOD AND WATER. EASILY DIRECTABLE AT TIMES, COMBATIVE AT TIMES. GLUCERNA 1.2 REMAINS INFUSING AT GOAL RATE. FREQUENT MOUTH SWABS OFFERED, MOST REFUSED. PT. HAS NOT SLEPT WELL THIS SHIFT, SHORT INTERVAL SPANS OF 5-10 MINUTES OF SLEEP, ALERT, AGITATED AND RESTLESS MAJORITY OF SHIFT. MAJORITY OF TALKING IS VERY HARD TO UNDERSTAND. PT. GETS ANGRY AND FRUSTRATED. REMAIN AT BEDSIDE, WILL CONTINUE TO MONITOR.
[2019-02-09 12:06] LABS: HEMATOCRIT 28.4 % (42.0-52.0); HEMOGLOBIN 9.2 gm/dL (14.0-18.0)
--- NOTE | 2019-02-09 15:20 | NUR ---
MET WITH PT AND SON. PT A/O, 'FUSSY' AND CURSING ABOUT ISSUES. PT HAS DPOA FORM IN CHART, DPOA IS LISTED JOHN, SON STATES 'SHE DRINKS' AND ASKING TO ADD TO DPOA. EXPLAINED THAT PT WOULD NEED TO DO A NEW ONE. NEW FORM GIVEN, PT JUST RECEIVED PAIN MEDS. WILL F/U WITH PT WHEN A/O AND NOT ON MEDS. SON ASKED AND PT AGREED THAT INFO COULD BE GIVEN TO PT'S DIL/KENYA OLSON AT [phone] AND TO PT'S SISTER/MONIQUE WHITNEY AT [phone] VELEZ, HE ASKED THAT REHAB RE-EVAL PT FOR POSSIBLE DC BACK TO REHAB SOON. MESSAGE LEFT FOR IRMA/REHAB LIALITTLE
--- NOTE | 2019-02-09 18:09 | NUR ---
PT AOX1-2 THIS SHIFT. NO ISSUES WITH AGGRESSION BUT PT CAN BE IMPULSIVE AND HAD A FALL ON PREVIOUS SHIFT. PT AFIB ON THE MONITOR, HAS BLACK TARRY STOOLS. PT HAD BLOOD ON 02/08 AND HAS A NOTED RECTAL BLEED WELL POLYPS. PT HAS EGD SCHEDULED FOR TOMORROW AT 10 SO HIS COUMADIN WAS HELD THIS SHIFT. PT STRICT NPO DUE TO FAILED SWALLOW STUDY. PT WAS LIGHTHEADED AND DIZZY DURING PT VISIT AND HAD POSITIVE ORTHOSTATICS, PROVIDER NOTIFIED. PT HAD SOME MEDS TRANSITIONED TO LIQUID FOR PEG TUBE ADMINISTRATION. PT HAD H2O FLUSHES AND GLUCERNA RUNNING THIS SHIFT WITH MINIMAL COMPLICATIONS. WILL CONTINUE TO MONITOR AND ASSESS.
[2019-02-10] VITALS (7 sets, daily range): BP systolic 130–160; BP diastolic 69–82
[2019-02-10 04:53] LABS: ABSOLUTE BASOPHILS 0.1 thou/uL (0.0-0.2); ABSOLUTE EOSINOPHILS 0.3 thou/uL (0.0-0.7); ABSOLUTE LYMPHOCYTES 0.8 thou/uL (0.8-5.3); ABSOLUTE MONOCYTES 1.2 thou/uL (0.0-1.2); ABSOLUTE NEUTROPHILS 9.7 thou/uL (1.6-8.1); BASOPHILS 0.6 %; EOSINOPHILS 2.2 %; HEMATOCRIT 28.7 % (42.0-52.0); HEMOGLOBIN 9.4 gm/dL (14.0-18.0); LYMPHOCYTES 6.8 %; MCH 28.7 pg (26.0-34.0); MCHC 32.8 g/dL (28.0-37.0); MCV 87.6 fL (80.0-100.0); MONOCYTES 9.8 %; MPV 9.2 fl. (7.2-11.1); NUCLEATED RBCS 0 /100WBC; PLATELET COUNT* 237 thou/uL (150-400); POLYS 80.6 %; RBC 3.28 mil/uL (4.50-6.00)
[2019-02-10 05:00] LABS: ALBUMIN 2.8 g/dL (3.4-5.0); CALCIUM 8.6 mg/dL (8.5-10.1); CREATININE 1.4 mg/dL (0.6-1.3); TOTAL BILIRUBIN 0.7 mg/dL (<0.1-1.0); TOTAL PROTEIN 6.1 g/dL (6.4-8.2)
--- NOTE | 2019-02-10 06:56 | NUR ---
Pt rested well overnight. Slept for much of shift though was awake and alert from approx 2200 to 0100. Ambulated in hallway X 1 assist w/ gait belt and walker; steady gait. 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 Pt conversational during time he was awake, and was up in chair for approx 15 minutes after walk. VSS. Tube feeding stopped at [place] for EGD planned for today. Will continue to monitor and have sitter at bedside.
--- NOTE | 2019-02-10 11:29 | NUR ---
VSS, ASSUMED CARE IN THE AM, ASSESSMENT PERFOREMD AND CHARTED, FALL PRECAUTIONS IN PLACE AND CALL LIGHT IN REACH, PT IS UP WITH ONE, PT IS ON RA, ALVAREZ IN PLACE AND IS DRAING, HE DENIES ANY PAIN THIS AM, PT IS TRACINGT AFIB ON THE MONITOR, PT GOAL IS TO D/C ALVAREZ, WORK WITH PT/OT/SP, PEG TUBE IN PLACE AND IS OPEN, WILL FOLLOW WITH PLAN OF CARE.
--- NOTE | 2019-02-10 14:39 | NUR ---
CONTINUE TO FOLLOW, MET WITH PT'S SON. PT IN PROCEDURE. DISCUSSED WITH DR VELEZ. SITTER TO BE REMOVED TODAY AND PLAN FOR REHAB RE-EVAL. MESSAGE LEFT FOR IRMA/ITZ
[2019-02-11] VITALS: BP 141/69
--- NOTE | 2019-02-11 03:23 | NUR ---
RECEIVED REPORT AND ASSUMED CARE AT 1900. VSS. CARDIAC MONITORING IN PLACE. PT DENIES COMPLAINTS OF PAIN. ASSESSMENT COMPLETED CHARTED. PT UP WITH ASSIST, ON RA. BED LOCKED IN LOWEST POSITION , CALL LIGHT WITHIN REACH, BED ALARM ON.
[2019-02-11 04:00] VITALS: BP 157/75
[2019-02-11 04:56] LABS: ABSOLUTE BASOPHILS 0.1 thou/uL (0.0-0.2); ABSOLUTE EOSINOPHILS 0.2 thou/uL (0.0-0.7); ABSOLUTE MONOCYTES 1.1 thou/uL (0.0-1.2); ABSOLUTE NEUTROPHILS 8.2 thou/uL (1.6-8.1); BASOPHILS 0.9 %; EOSINOPHILS 2.1 %; HEMATOCRIT 28.5 % (42.0-52.0); HEMOGLOBIN 9.3 gm/dL (14.0-18.0); LYMPHOCYTES 9.2 %; MCH 28.6 pg (26.0-34.0); MCHC 32.5 g/dL (28.0-37.0); MCV 88.1 fL (80.0-100.0); MONOCYTES 10.6 %; MPV 9.4 fl. (7.2-11.1); NUCLEATED RBCS 0 /100WBC; PLATELET COUNT* 248 thou/uL (150-400); POLYS 77.2 %; RBC 3.24 mil/uL (4.50-6.00); RDW-CV 16.7 % (10.5-14.5); WBC 10.6 thou/uL (4.0-11.0)
[2019-02-11 05:24] LABS: ALBUMIN 2.7 g/dL (3.4-5.0); CALCIUM 8.7 mg/dL (8.5-10.1); CREATININE 1.3 mg/dL (0.6-1.3); POTASSIUM 3.9 mmol/L (3.5-5.1); TOTAL BILIRUBIN 0.7 mg/dL (<0.1-1.0)
[2019-02-11 08:00] VITALS: BP 104/43
[2019-02-11 11:42] VITALS: BP 155/73
--- NOTE | 2019-02-11 14:08 | NUR ---
DC ORDERS TO REHAB RECEIVED. CALLED AND SPOKE WITH IRMA/ITZ, SHE ASKED THAT HOME SITAUTION BE COMFIRMED. CALL TO KENYA/SHIRAZ AND CONFIRMED THAT PT'S SHAHRIARR/ANTHONY CAN STAY WITH PT AT DC 21/10. UPDATED IRMA AND AWAITING DECISION.
[2019-02-11 16:06] VITALS: BP 111/75
--- NOTE | 2019-02-11 19:06 | PATH ---
[address] [address] PATHOLOGY RPT PROCEDURE Name: KG GILES Room: [address] IN .R.#: [id number] Admission: 01/26/19 Date of : 45 Discharge: Report #: [id number] Path Case #: [id number] [facility] Accession Number: [id number] . 01 Material submitted: . duodenum - DUODENAL BIOPSY FOR DUODENITIS AND DUODENAL ULCER . 01 Clinical history: . None provided . 02 Diagnosis: Small bowel, duodenum, biopsy: - Moderate chronic inflammation. - Possible focal superficial erosion. - Normal villous architecture. (SKM:sloane; 02/11/2019) QMS 02/11/2019 1107 Local . 02 Electronically signed: . Emre Garcia MD, Pathologist NPI- [id number] . 01 Gross description: . Received in formalin labeled "Kg Giles, duodenal biopsy for duodenitis and duodenal ulcer," are 4 segments of mcdowell soft tissue measuring 0.9 x 0.7 x 0.3 cm in aggregate dimensions and ranging from 0.3 to 0.6 cm in maximum dimension. The specimen is submitted entirely in cassette A1. (TSD; 02/10/2019) TOB/TOB 02/10/20192050 Local . 02 Pathologist provided ICD-10: K29.80 . 02 CPT . 281457 Specimen Comment: A courtesy copy of this report has been sent to [phone] Specimen Comment: [phone], Specimen Comment: Report sent to ,DR FROST / DR DOE Performed at: 01 [facility] [address], [place], [place] [id number] MD Yao Nevarez MD Phone: [phone] Performed at: [address], [place], [place] [id number] MD Isaiah Wilder MD Phone: [phone]
[2019-02-11 20:00] VITALS: BP 134/62
[2019-02-12] VITALS: BP 144/63
[2019-02-12 04:00] VITALS: BP 137/63
--- NOTE | 2019-02-12 05:48 | NUR ---
ASSUMED PATIENT CARE AT 1900. ASSESSMENT COMPLETED CHARTED. VSS. PATIENT IS AFIB ON THE MONITOR. PATIENT CONTINUES ENTERAL FEEDING THROUGH PEG TUBE AT 40ML PER HOUR. HOURLY ROUNDING IN PLACE FOR PATIENT SAFETY. CLWR.
[2019-02-12 07:55] VITALS: BP 139/59
[2019-02-12 08:00] VITALS: BP 139/59
--- NOTE | 2019-02-12 11:11 | CON ---
[address] [address] CONSULTATION Name: YUSEF OLSON Room: [address] IN .R.#: [id number] Admission: 01/26/19 Attend Phys: Amilcar Philippe Discharge: Date of : 45 Report #: [id number] THIS REPORT FOR: //name// CC: Amilcar Blackwell DATE OF SERVICE: 01/30/2019 HISTORY OF PRESENT ILLNESS: This is a pleasant 73-year-old gentleman with past medical history significant for hypertension, hyperlipidemia, stroke, who was recently admitted to [facility] rehab and was recently transferred for acute metabolic encephalopathy. The GI service has been consulted for drop in hemoglobin as well as heme-positive stool. There is no documented history of hematemesis, hematochezia, melena or coffee-ground emesis. History cannot be obtained from the patient because of his mental status. PAST MEDICAL HISTORY: Hypertension, hyperlipidemia, atrial fibrillation, stroke, diabetes, hypertension. PAST SURGICAL HISTORY: Tonsillectomy, adenoidectomy, aortic valve replacement, cardiac bypass. SOCIAL HISTORY: No history of smoking or recreational drug use. Remote history of alcoholism in the past. REVIEW OF SYSTEMS: Unable to assess due to the patient's altered mental status. PHYSICAL EXAMINATION: GENERAL: The patient is alert, but confused. HEENT: Mucous membranes are moist. There is no congestion. LUNGS: Clear to auscultation bilaterally. CARDIOVASCULAR: Rate and rhythm regular, S1, S2 present. ABDOMEN: Soft. There is no distention, guarding or rigidity. EXTREMITIES: Warm, well perfused. There is no edema. SKIN: Warm and dry. LABORATORY DATA: Hemoglobin baseline of about 9. Hemoglobin today is about 8.4, hematocrit baseline of about 25, hematocrit today is 25.6. INR 3.6. ASSESSMENT AND PLAN: A pleasant 73-year-old gentleman with history outlined above, presenting with heme positive stool. We will have to wait for the patient's INR to stabilize before proceeding with EGD and [place] [address] CONSULTATION Name: YUSEF OLSON Room: [address] IN [facility]#: [id number] Admission: 01/26/19 Attend Phys: Amilcar linton [place] Discharge: Date of : 45 Report #: [id number] recommendations will be based on results of the endoscopy. Continue Protonix for now. <ELECTRONICALLY SIGNED> By: Sukhi Goss MD 02/12/19 1111 1348 [id number] Goss MD /nt
[2019-02-12 11:33] VITALS: BP 107/60
--- NOTE | 2019-02-12 11:43 | NUR ---
CONTINUE TO AWAIT INSURANCE AUTH FOR SNF
--- NOTE | 2019-02-12 15:09 | NUR ---
VSS, ASSUMED CARE IN THE AM, ASSESSMENT PERFORMED AND CHARTED, FALL PRECAUTIONS IN PLACE AND CALL LIGHT IN REACH, PT IS A&O4, UP WITH ONE AND WALKER, TRACINGS AFIB ON THE MONITOR, PT DENIES ANY PAIN, PEG TUBE FEEDING INFUSING AT 40 ML/HR, PT IS TO D/C TO REHAB TODAY, WILL FOLLOW WITH PLAN OF CARE, AND HOURLY ROUNDS, PT HAS WORKED WITH SPEECH,
[2019-02-12] MEDS ORDERED: LAXATIVE SUPPOS10 MG RECTAL (15:35)
[2019-02-12] MEDS ORDERED: CARAFATE1 GM/10 ML PO (15:36)
[2019-02-12] MEDS ORDERED: FLOMAX0.4 MG PO (15:37)
[2019-02-12] MEDS ORDERED: HUMALOG100 UNIT/1 SUBQ (15:40)
[2019-02-12 15:47] VITALS: BP 107/60
== END 2019-02-12 16:38 | DRG 177 ==
LOC: M.2W 13:30 → M.ORTHSURG 01-30 18:56 → M.2W 02-02 10:01
PROVIDERS: Internal Medicine; Nurse Practitioner; ADMIT Family Medicine
DX: J69.0 Pneumonitis due to inhalation of food and vomit (principal); G93.41 Metabolic encephalopathy; K26.4 Chronic or unspecified duodenal ulcer with hemorrhage; E44.1 Mild protein-calorie malnutrition; I48.20 Chronic atrial fibrillation, unspecified; D68.59 Other primary thrombophilia; D62 Acute posthemorrhagic anemia; M19.90 Unspecified osteoarthritis, unspecified site; R74.0 Nonspecific elevation of levels of transaminase and lactic acid dehydrogenase [LDH]; I10 Essential (primary) hypertension; I25.10 Atherosclerotic heart disease of native coronary artery without angina pectoris; E11.65 Type 2 diabetes mellitus with hyperglycemia; R13.10 Dysphagia, unspecified; K56.41 Fecal impaction; E78.5 Hyperlipidemia, unspecified; R06.6 Hiccough; G47.33 Obstructive sleep apnea (adult) (pediatric); I65.09 Occlusion and stenosis of unspecified vertebral artery; R33.9 Retention of urine, unspecified; Z88.8 Allergy status to other drugs, medicaments and biological substances; Z95.1 Presence of aortocoronary bypass graft

== ENCOUNTER 2019-02-12 15:23 | Inpatient (IN) | payer OTHER ==
[~2019-02-12] VITALS: Ht 177.8 cm; Wt 66.2 kg
[2019-02-12] MEDS ORDERED: LAXATIVE SUPPOS10 MG RECTAL (15:35)
[2019-02-12] MEDS ORDERED: CARAFATE1 GM/10 ML PO (15:36)
[2019-02-12] MEDS ORDERED: FLOMAX0.4 MG PO (15:37)
[2019-02-12] MEDS ORDERED: HUMALOG100 UNIT/1 SUBQ (15:40)
--- NOTE | 2019-02-12 16:48 | NUR ---
PT TO REHAB NOW,
[2019-02-12 17:31] VITALS: BP 126/73
--- NOTE | 2019-02-12 19:21 | NUR ---
ASSUMMED CARE OF PT UPON ADMISSION TO UNIT, PT ALERT AND ORIENTED, PT TRANSFERRED WITH ASSIST OF 1, AND GB WITH A STAND PIVOT INTO BED, PT C/O PAIN ON HIS TAIL BONE, OPEN AREA NOTED ON COCCYX, BARRIER OINTMENT APPLIED, CONSULT FOR WOUND NURSE PLACED, PEG TUBE INTACT, TUBE FEEDING INFUSING AT 40CC, 5 CC RESIDUAL AT 1800, H20 FLUSH OF 225CC DONE X 1, PT REPOSITIONED EVERY 2 HOURS, ADMISSION COMPLETED, ORIENTED TO UNIT, HOURLY ROUNDING COMPLETED, WILL CONTINUE TO MONITOR.
[2019-02-12 20:45] VITALS: BP 148/67
--- NOTE | 2019-02-12 20:45 | NUR ---
AWAKENED FOR VITAL SIGNS AND REASSESSMENT. TUBE FEEDING INFUSING AT 40CC/HOUR. NO RESIDUAL. PEG DRESSING DRY/INTACT. DENIES DISCOMFORT. CALL LIGHT WITHIN REACH.
--- NOTE | 2019-02-13 00:13 | NUR ---
AT APPROXIMATELY 2200 CALLED SECURITY TO COME TO PATIENT'S ROOM. PATIENT HAD GOTTEN OUT OF BED WITHOU CALLING FOR THE 3RD TIME. PATIENT HAS A PEG TUBE AND IS UNSTEADY ON HIS FEET. PATIENT STANDS TO VOID WITH HIS PANTS AT HIS FEET AND SWAYS. PATIENT BACME BELIGERENT WHEN ATTEMPT WAS MADE TO ASSIST WITH HIS PULL UP WHICH CONTAINED SOME LOOSE STOOL. SON AND [id number] CAME TO VISIT WITH PATIENT FOR ABOUT A HOUR. STEPHANIE THE COLLECTION SYSTEMS TECHNICIAN CAME AGAIN AT JUST BEFORE MIDNIGHT TO VISIT WITH PATIENT. STEPHANIE TOLD THE PATIENT EARLIER THAT HE WOULD COME CHECK UP ON HIM. PATIENT IS CURRENTLY SLEEPING. PATIENT TOLD VISITORS AND OTHER NURSE ON DUTY THAT HE DOESN'T WANT THIS NURSE TO BE IN HIS ROOM ANYMORE. AT THE BEGINNING OF THE SHIFT THE PATIENT WAS HAVING DIFFICULTY VOIDING. ASKED THE PATIENT IF HE HAD TO BE STRAIGHT CATHED WHEN HE WAS ON THE TELEMETRY UNIT. MENTIONED TO PATIENT THAT A BLADDER SCAN WOULD NEED TO BE DONE TO CHECK THE STATUS OF HIS BLADDER. PATIENT DOESN'T WANT TO BE CATHED AND THEREFORE DOESN'T WANT THIS NURSE IN HIS ROOM. NURSE ROTARY DRILLER PROSPECTING, NICKY SALAZAR ALSO SPENT TIME WITH THE PATIENT.
[2019-02-13 04:16] LABS: HEMATOCRIT 30.2 % (42.0-52.0); HEMOGLOBIN 9.7 gm/dL (14.0-18.0); MCH 28.1 pg (26.0-34.0); MCHC 32.2 g/dL (28.0-37.0); MCV 87.3 fL (80.0-100.0); MPV 8.9 fl. (7.2-11.1); RBC 3.46 mil/uL (4.50-6.00); RDW-CV 17.2 % (10.5-14.5)
[2019-02-13 04:26] LABS: CALCIUM 9.1 mg/dL (8.5-10.1); CREATININE 1.3 mg/dL (0.6-1.3); POTASSIUM 3.9 mmol/L (3.5-5.1)
--- NOTE | 2019-02-13 05:28 | NUR ---
RESTED QUIETLY FROM ABOUT MIDNIGHT. USED CALL LIGHT APPROPRIATELY. CALLED X 2 TO USE THE URINAL. HAS VOIDED 300 CC THIS SHIFT. REFUSES TO LET STAFF BLADDER SCAN. HOURLY ROUNDING IN PROGRESS.
--- NOTE | 2019-02-13 07:45 | NUR ---
FOLLOWING AM ASSESSMENT AND VITAL SIGNS PT STARTED CLIMBING OUT OF BED AFTER NURSE LEFT THE ROOM. NURSE RETURNED TO ROOM, PT CONTINUED CLIMBING OVER THE BED RAILS DESPITE STAFF'S ATTEMPTS TO PROVIDE A SAFE BED EXIT. PT WAS ADAMANT THAT HE WAS GOING TO STAND TO USE THE URINAL. WHILE STANDING PT SWAYED BACK AND FORTH, LOSING HIS BALANCE MULTIPLE TIMES. WHILE I KEPT HIM FROM FALLING HE USED THE URINAL, DROPPED IT ON THE FLOOR AND WAS INCONTINENT OF STOOL AT THE SAME TIME. EVENTUALLY PT RETURNED TO THE BED, BED ALARM WAS RESET AND ROOM CLEANED IT UP.
[2019-02-13 08:00] VITALS: BP 127/59
--- NOTE | 2019-02-13 14:15 | NUR ---
PT AGAIN SET OFF THE BED ALARM AND WAS CLIMBING OVER THE BED RAILS WHEN NURSE ARRIVED. PT USED THE URINAL, REMAINS VERY UNSTEADY AND WAS INCONTINENT OF LIQUID STOOL. PT RETURNED TO BED AFTER AUGUSTINE CARE WAS DONE. PT DOES NOT FOLLOW DIRECTIONS, HAS NO AWARENESS OF SURROUNDINGS AND NEEDS ALMOST CONSTANT OBSERVATION FOR SAFETY.
[2019-02-13 20:21] VITALS: BP 120/49
--- NOTE | 2019-02-14 05:18 | NUR ---
ASSUMED PT CARE AT 1930. PT SLEEPING, AROUSES WITH ASSESSMENT BUT QUICKLY BACK TO SLEEP. TUBE FEEDING INFUSING AT 40CC/HOUR, NO RESIDUAL. 150CC FLUSH. PEG DRESSING DRY/INTACT. BAG AND TUBING CHANGED AT 0400. PT UP TO VOID X2 STANDING AT BEDSIDE, SWAYING AND HAVING INCONTINENT BOWEL AT THE SAME TIME. PERICARES PROVIDED. PT TURNED ALLOWED. PT SLEPT WELL OVERNIGHT. ATIVAN ONCE SO FAR THIS SHIFT. CALL LIGHT IN REACH. BED ALARM ON FOR SAFETY. HOURLY ROUNDING IN PROGRESS, WILL CONTINUE TO MONITOR.
[2019-02-14 07:35] VITALS: BP 113/50
--- NOTE | 2019-02-14 18:41 | NUR ---
AM ASSESSMENT AND VITAL SIGNS COMPLETED DOCUMENTED. PRN ATIVAN GIVEN WITH AM MEDS AND HE HAS BEEN LESS AGGRESSIVE THAN YESTERDAY BUT CONTINUES TO BE IMPULSIVE AND CAN BE DIFFICULT TO DIRECT AT TIMES. THIS EVENING PT WAS HEARD YELLING AND HE STATED HE WAS YELLING AT HIS GIRLFRIEND AND HE WOULD STRANGLE HER IF HE GOT A CHANCE. I ASKED HIM TO LOWER HIS VOICE SO HE WOULDN'T DISTURB THE OTHER PATIENTS AND HE RAISED HIS FIST AND SHOOK IT AT ME. FALL PRECAUTIONS AND VERY FREQUENT ROUNDING CONTINUE.
[2019-02-14 20:00] VITALS: BP 117/47
--- NOTE | 2019-02-15 05:17 | NUR ---
ASSUMED PT CARE AT 1930. PT ALERT AND ORIENTED, REQUESTING HIS VCR BE TURNED ON. PT SET OFF BED ALARM HALF A DOZEN TIMES, STANDS TO VOID WITH STEADYING ASSIST. PT TRANSFERRED TO RECLINER TWICE PER REQUEST. PT QUITE DEMANDING AND DISAGREEABLE AT TIMES. INCONTINENT OF BOWEL TWICE THIS SHIFT, PERICARE PROVIDED. PT TURNED ALLOWED. TUBE FEEDING INFUSING AT 40CC/HR. PEG DRESSING DRY/INTACT. BAG AND TUBING CHANGED AT 0400. PT ANGRY AT HAVING ACCUCHECKS. ATIVAN TWICE THIS SHIFT. CALL LIGHT AND FREQUENTLY USED ITEMS IN REACH. HOURLY ROUNDING IN PROGRESS, WILL CONTINUE TO MONITOR.
[2019-02-15 11:12] VITALS: BP 171/70
[2019-02-15 12:40] LABS: INR 1.2; PROTIME 11.8 Seconds (9.20-11.50)
--- NOTE | 2019-02-15 15:48 | NUR ---
ASSUMMED CARE OF PT AT 0730, PT ALERT, SLEEPY, IMPULSIVE, SETS OFF ALARMS, DOES NOT USE CALL LIGHT, UP SITH SBA, CUEING, GB WALKER, SAT IN CHAIR FOR INTERVALS THRU OUT SHIFT, TURNED ON SIDE WHEN IN BED, DRESSING TO COCCYX REAPPLIED, PT INCONTINENT OF SMALL AMOUNT OF STOOL, TUBE FEEDING INFUSING AT 40CC/HR, O CC RESIDUAL THIS AM, AND 5CC RESIDUAL THIS PM, STANDS TO VOID PER URINAL, FAMILY CONCERNED THAT ATIVAN IS MAKING PT SLEEPY AND REQUESTS IT NOT BE GIVEN, DISCUSSED WITH PHYSICIAN AND ORDERS OBTAINED, PARTICIPATED IN ALL THERAPIES, HOURLY ROUNDING COMPLETED, ASSESSMENT COMPLETE, WILL CONTINUE TO MONITOR.
[2019-02-15 20:00] VITALS: BP 128/54
[2019-02-16 05:02] LABS: INR 1.1; PROTIME 11.6 Seconds (9.20-11.50)
--- NOTE | 2019-02-16 05:05 | NUR ---
ASSUMED CARES AT 1920. ALERT AND ORIENTED. NOT AGITATED. WAS MOSTLY PLEASANT BUT STILL IMPULSIVE. NPO WITH TUBE FEEDING RUNNING AT 40 CC/HR. THIS WILL BE HELD AT 0600. MEDS GIVEN VIA PEG TUBE. MIN ASSIST WITH GAIT BELT AND WALKER. STANDS TO USE URINAL. DRSG TO COCCYX INTACT. HAS HAD LIQUID STOOL INCONTINENCE. SLEPT MOST OF THE NIGHT. CALL LIGHT IN REACH AND BED ALARM ON.
[2019-02-16 08:00] VITALS: BP 122/67
--- NOTE | 2019-02-16 11:25 | NUR ---
WOUND NURSE: PATIENT SEEN TO ADDRESS SKIN LESION ON COCCYX WHICH MEASURES 1.5 X 0.5 X 0.1 CM. CONTAINS PARTIAL THICKNESS TISSUE LOSS AND PALE CREAM COLORED NONGRANULATING TISSUE IN THE WOUND BED, THERE IS A SMALL AMOUNT OF SEROUS DRAINAGE PRESENT. THE SITE IS TENDER TO TOUCH PER THE PATIENT. CLEANSED WITH SOAP AND WATER, RINSED, THEN PATTED DRY. APPLIED SKIN PREP TO PERIWOUND TISSUE, THEN COVERED WOUND BED USING EXUDERM LP HYDROCOLLOID DRESSING, THEN SECURED THIS IN PLACE USING A SURESITE TRANSPARENT DRESSING. THIS WAS TOLERATED WELL BY THE PATIENT WHO WAS INSTRUCTED ON NEED FOR PRESSURE RELIEF USING FREQUENT REPOSITIONING OFF WOUND AND USE ON CUSHION IN CHAIR WHEN SITTING. NEED FOR REINFORCEMENT OF INSTRUCTION IS INDICATED.
--- NOTE | 2019-02-16 11:58 | NUR ---
Nutrition: Pt starting intermittent TF today at 15:00. Start at 65mL for first hour and monitor tolerance, nausea. GOAL is 90mL/hr for >15 hours. Likely, TF will run 15:00 to 08:00. See RD Reassessment Form for details.
--- NOTE | 2019-02-16 15:22 | NUR ---
SW completed initial assessment for inpt rehab unit. Pt familiar to SW due to pt previous stay on inpt rehab unit. Pt lives at home alone; pt's dtr can stay with pt at dc per record. Pt will have home INR, pt has shower chair and pt has handicap parking tag application as previously completed and provided to pt. SW to continue to follow to assist with safe dc planning.
--- NOTE | 2019-02-16 17:04 | NUR ---
ASSUMMED CARE OF PT AT 0730, PT ALERT, PT SEEMS TO FALL ASLEEP IF NOT BEING STIMULATED, TRANSFERS WITH ASSIST OF 1, GB WALKER, NEEDS CUEING, PT STANDS AT BEDSIDE TO VOID, SMALL AMOUNT OF LIQUID STOOL X 2 THIS SHIFT, TUBE FEEDING RESTARTED AT 1500 AT 65 CC, INCREASED TO 90 CC AT 1600, 40CC REISDUAL AT 1700, PEG TUBE SITE INTACT, DRESSING CHANGED, PT SAT IN CHAIR AT INTERVALS THIS SHIFT, TURNED ON SIDE WHEN IN BED, CARE NURSE DID DRESSING TO COCCYX, REPOSTIONED EVERY 2 HOURS, DENIES PAIN, HOURLY ROUNDING COMPLETED, ASSESSMENT COMPLETE, WILL CONTINUE TO MONITOR.
[2019-02-16 20:00] VITALS: BP 118/47
[2019-02-17 04:29] LABS: HEMATOCRIT 31.5 % (42.0-52.0); HEMOGLOBIN 10.3 gm/dL (14.0-18.0); MCH 28.3 pg (26.0-34.0); MCHC 32.7 g/dL (28.0-37.0); MCV 86.5 fL (80.0-100.0); MPV 8.9 fl. (7.2-11.1); RBC 3.64 mil/uL (4.50-6.00); RDW-CV 16.7 % (10.5-14.5); WBC 8.8 thou/uL (4.0-11.0)
[2019-02-17 04:33] LABS: INR 1.2; PROTIME 12.4 Seconds (9.20-11.50)
[2019-02-17 04:50] LABS: CALCIUM 8.8 mg/dL (8.5-10.1); CREATININE 1.1 mg/dL (0.6-1.3); MAGNESIUM 2.1 mg/dL (1.8-2.4); POTASSIUM 3.9 mmol/L (3.5-5.1)
--- NOTE | 2019-02-17 06:12 | NUR ---
ASSUMED CARES AT 1920. ALERT AND ORIENTED TO SELF. CALMER BUT STILL IMPULSIVE AND DOES NOT USE CALL LIGHT WHEN GETTING UP. STANDS TO USE URINAL OR TO BATHROOM/BSC. MIN ASSIST WITH GAIT BELT AND WALKER. GAIT UNSTEADY. DRESSING TO COCCYX INTACT. COUGHS UP THICK YELLOW/WHITE PHLEGM. AT 0, TUBE FEEDING HAD BEEN RUNNING AT 90 CC FOR 5 HRS AND RESIDUAL CHECK WAS 175 CC. SO FEEDING WAS DECREASED TO 65 CC/HR FOR REST OF NIGHT. RECHECK OF RESIDUAL AT 2400 WAS 130 CC. RESIDUAL RECHECK AT 0300 WAS 100 CC. AT 0600 RESIDUAL WAS 40 CC. PT WILL BE COMPLETING 1 LITER OF FEEDING BY 0700. PT DID NOT HAVE ANY NAUSEA/VOMITING OR ABD DISCOMFORT OVERNIGHT. PT WAS RESTLESS BUT FINALLY ABLE TO SLEEP BETTER AFTER 0200. CALL LIGHT IN REACH AND BED ALARM ON.
[2019-02-17 08:00] VITALS: BP 146/69
--- NOTE | 2019-02-17 16:50 | NUR ---
Team conference held today. Pt sleeping at time Dr Little and SW rounded after team. Plan is for pt to remain on rehab unit to reteam, estimated length of stay about 2 weeks. Team reported pt behavior issues at times, difficulty sleeping, possible dehydration, SBA to mod A with PT tasks, supervision to max assist with OT tasks, min to max A with ST tasks. Barriers to dc include: decreased balance, fatigue, decreased insight, decreased activity tolerance, cognition, impulsivity, poor initiation, poor organization and sequencing. ST plans to repeat swallow study. Pt tolerating vital stim; still at risk for aspiration. Plan at dc for pt to be able to dc home with dtr for assistance as needed. SW to follow to discuss with pt family and to assist with safe dc planning.
[2019-02-17 20:05] VITALS: BP 166/71
--- NOTE | 2019-02-18 00:55 | NUR ---
ASSUMED CARE @ 1924-.BEING ASSISTED BY SECURITY SYSTEMS MANAGER IN TOILET.HAD BM.SBA FOR TOILETING.CONTINOUS PEG FEEDING INFUSING @ 75 ML/HOUR BY PUMP.WEARS PULL UPS. ALL MEDS CRUSHED,MIXED W/ H20 & GIVEN PER PEG.HOB UP 30-45 DEGREES WHILE IN BED.BED ALARM ON @ 2034 ALREADY.FIRST DOSE AMBIEN 5 MG GIVEN PER PEG @ 2019. WOKE UP @ 2249 & 2ND DOSE AMBIEN 5 MG GIVEN PER PEG @ 2256.ON HOURLY ROUNDS.SECURITY SYSTEMS MANAGER DOING ODD HOUR ROUNDS.
[2019-02-18 04:13] LABS: INR 1.3; PROTIME 13.1 Seconds (9.20-11.50)
--- NOTE | 2019-02-18 05:18 | NUR ---
SLEEPING SINCE 2199 & SLEPT GOOD.BRP X1 FOR BM.INC BM X1.USED URINAL W/ ASSIST X2.INC.URINE X1.WEARS PULL UPS.CALLED 5X BEFORE TAKING AMBIEN.PEG DRSG CHANGED @ 0300.RESIDUAL CHECKED 2X @ 1999 & 0000-0 ML BOTH TIMES. H20 FLUSHES GIVEN 100 ML W/ MEDS.AWAKE @ 0400.FOUND KNEELING IN BED.WANTS TO SIT IN RECLINER.INFORMED IT'S TOO EARLY TO GET UP & NEEDS TO GO BACK TO SLEEP.
[2019-02-18 07:54] VITALS: BP 136/58
[2019-02-18 09:00] VITALS: BP 136/58
--- NOTE | 2019-02-18 16:40 | NUR ---
ALERT AND ORIENTED BUT GETS CONFUSED AND FORGETFUL AT TIMES. UP WITH STAND BY ASSIST, GAIT BELT AND WALKER. WILL GET UP SOMETIMES WITHOUT USING CALL LIGHT. BED ALARM AND CHAIR ALARM BEING USED. TUBE FEEDING ORDERS CLARIFIED. TUBE FEEDING CHECKED FOR PATENCY PRIOR TO GIVING TUBE FEEDING OR WATER BOLUSES. NO RESIDUAL NOTED WHEN CHECKED. TUBING FEEDING CURRENTLY INFUSING WITHOUT DIFFIUCLTY OR PATIENT C/O NAUSEA. PATIENT HAVING DIFFICULTY VOIDING TODAY. BLADDER SCANNED AFTER VIDING 250ML [id number] BUT STILL HAD 501ML OF URINE IN BLADDER. PATIENT REFUSED STRAIGHT CATH ORDERED. BLADDER SCANNED AFTER VOIDING 200ML AT 1340 AND STILL HAD 565ML OF URINE IN BLADDER. VOIDED AT 1510 AND BLADDER SCAN SHOWED 607ML OF URINE. NOTIFIED AND NEW ORDER FOR UROLOGY CONSULT. UROLOGY NURSE TALKED TO PATIENT ABOUT DX OF URINARY RETENTION AND ITS RISK. PATIENT STILL REFUSING STRAIGHT CATH. PATIENT ALSO REFUSED XANAX AND WATER BOLUS IN TUBE FEEDING EARILER TODAY. CALL LIGHT WITHIN REACH. BED ALARM ON CHAIR ALARM ON. STILL IN BLADDER. PATIENT STILL REFUSING STRAIGHT CATH. AT 1700 PATIENT VOIDED 250ML BUT STILL HD 566ML IN BLADDER. BLADDER
[2019-02-18 20:04] VITALS: BP 147/67
--- NOTE | 2019-02-18 23:46 | NUR ---
PT ANGRY RESTLESS AND UNCOOPERATIVE AT START OF SHIFT. PT ANGRY AT PRIOR SHIFT FOR INFORMING PT HE NEEDED STRAIGHT CATHETERIZATION. PT GIVEN PRN XANAX PER PEG TUBE WITH GOOD RESULTS. PT RESTING QUIETLY IN BED, USING CALL LIGHT APPROPRIATELY.
[2019-02-19 03:51] LABS: HEMATOCRIT 29.3 % (42.0-52.0); HEMOGLOBIN 9.6 gm/dL (14.0-18.0); MCH 28.1 pg (26.0-34.0); MCHC 32.7 g/dL (28.0-37.0); MPV 9.9 fl. (7.2-11.1); RBC 3.4 mil/uL (4.50-6.00); RDW-CV 16.6 % (10.5-14.5); WBC 8.2 thou/uL (4.0-11.0)
[2019-02-19 03:59] LABS: INR 1.6
[2019-02-19 04:01] LABS: ALBUMIN 2.9 g/dL (3.4-5.0); CALCIUM 8.9 mg/dL (8.5-10.1); POTASSIUM 3.9 mmol/L (3.5-5.1); TOTAL BILIRUBIN 0.3 mg/dL (<0.1-1.0); TOTAL PROTEIN 5.9 g/dL (6.4-8.2)
--- NOTE | 2019-02-19 05:39 | NUR ---
PT SLEPT WELL DURING SHIFT AFTER RECIEVING PRN XANAX. PT USING CALL LIGHT APPROPRIATELY. PT CONTINUES TO REFUSE STRAIGHT CATH FOR RESIDUAL > 500. PT VOIDING 200 ML CLEAR YELLOW URINE. TUBE FEEDING CONTINUED AT GOAL. NO ACUTE CHANGES DURING SHIFT.
[2019-02-19 08:22] VITALS: BP 126/69
--- NOTE | 2019-02-19 16:41 | NUR ---
TAM spoke with pt dtr in law today to review team conference summary and plan for reteam. SW to continue to follow to assist with safe dc planning.
--- NOTE | 2019-02-19 16:50 | NUR ---
AM ASSESSMENT AND VITAL SIGNS COMPLETED DOCUMENTED. PT HAS PARTICIPATED WITH ALL THERAPIES. VIDEO SWALLOW REPEATED AND PT WILL NEED TO REMAIN ON TUBE FEEDINGS. PRN XANAX GIVEN X1 FOR AGITATED BEHAVIOR. FALL PRECAUTIONS AND HOURLY ROUNDING CONTINUE.
[2019-02-19 17:16] LABS: URINE BILIRUBIN NEGATIVE (Negative); URINE BLOOD TRACE (Negative); URINE CLARITY CLEAR; URINE COLOR YELLOW; URINE GLUCOSE-RANDOM NEGATIVE (Negative); URINE KETONES NEGATIVE (Negative); URINE LEUKOCYTES-REFLEX 1+ (Negative); URINE NITRITE-REFLEX NEGATIVE (Negative); URINE PROTEIN NEGATIVE (Negative); URINE SPECIFIC GRAVITY 1.015 (1.005-1.030); URINE UROBILINOGEN 0.2 E.U./dl (0.2-1.0)
[2019-02-19 17:30] LABS: SQUAMOUS NONE SEEN /LPF (0-3); URINE RBC 3-10 Few /HPF (0-2); URINE WBC-REFLEX >25 Many /HPF (0-5)
[2019-02-19 17:31] LABS: BACTERIA-REFLEX 1-9 Few /HPF (None Seen); MUCUS 0-3 Light strn/LPF (None Seen)
[2019-02-19 17:32] LABS: CELLULAR CASTS 0-3 Few /LPF (None Seen); CRYSTALS None Seen /LPF (None Seen); YEAST-REFLEX Present (None Seen)
[2019-02-19 20:04] VITALS: BP 141/57
--- NOTE | 2019-02-20 01:43 | NUR ---
ASSUMED CARE @ 1929-02/19-FRIDAY.APPEARS SLEEPING IN BED ON HIS BACK W/HOB UP. URINAL W/IN REACH.BED ALARM ALREADY ON @ 1929.PEG FEEDING INFUSING @ 75 ML/ HOUR.NPO OBSERVED.ASSIST TO STAND UP TO USE URINAL.WEARS PULL UPS.ALL MEDS CRUSHED & GIVEN PER PEG.PRN XANAX GIVEN PER PEG @ 2311.HACKING SEVERELY @ 0.RESIDUAL @ 2105-0 MNL.RESIDUAL @ 0 WHILE HACKING-165 ML.LUNGS-CLEAR BUT DIMINISHED ON LOWER LOBES.TUBE FEEDING HELD @ 2309.HACKING LESSER @ 2340. ACCUCHECK @ 0010-60.APPLE JUICE 120 ML GIVEN PER PEG @ 0010.ACCUCHECK RE- CHECKED @ 0100-99.RESIDUAL CHECKED @ 0110-110 ML.TUBE FEEDING STILL ON HOLD. ON HOURLY ROUNDS.SKEWER UP DOING ODD HOUR ROUNDS.
[2019-02-20 04:38] LABS: INR 2.1; PROTIME 21.4 Seconds (9.20-11.50)
--- NOTE | 2019-02-20 05:26 | NUR ---
SLEEPING SINCE 1930.AWAKE @ INTERVALS @ 0000,0200 & 0400-02/20-SAT.RE-CHECKED RESIDUAL @ 0210-55 ML.TUBE FEEDING RE-STARTED @ 75 ML/HOUR.PEG DRSG CHANGED @ 021.VOIDED PER URINAL X2.USED BSC X1 BUT NO BM.
[2019-02-20 08:04] VITALS: BP 144/68
--- NOTE | 2019-02-20 18:25 | NUR ---
AM ASSESSMENT AND VITAL SIGNS COMPLETED DOCUMENTED. PT HAS BEEN CALMER AND MORE COOPERATIVE THIS SHIFT. TUBE FEEDING RESTARTED AT 1500, RATE OF 75ML/HR WITH 250CC OF WATER FLUSH WITH MEDICATIONS. PT ALSO REC'D ONE BOLUS FEEDING AT 1230 TO COMPENSATE FOR THE RATE BEING 75 INSTEAD OF GOAL RATE OF 90. FALL PRECAUTIONS AND HOURLY ROUNDING CONTINUE.
[2019-02-20 19:55] VITALS: BP 145/62
[2019-02-21 05:33] LABS: HEMATOCRIT 31.5 % (42.0-52.0); HEMOGLOBIN 10.3 gm/dL (14.0-18.0); MCH 28.1 pg (26.0-34.0); MCHC 32.5 g/dL (28.0-37.0); MCV 86.3 fL (80.0-100.0); MPV 10.1 fl. (7.2-11.1); RBC 3.65 mil/uL (4.50-6.00); RDW-CV 16.8 % (10.5-14.5); WBC 10.7 thou/uL (4.0-11.0)
--- NOTE | 2019-02-21 05:35 | NUR ---
ASSUMED CARES AT 1920. ALERT AND ORIENTED. WAS COOPERATIVE AND PLEASANT OVERNIGHT. NPO WITH TUBE FEEDING. AT 2200, STOMACH RESIDUAL CHECK WAS 30 CC AND SO FEEDING RATE WAS INCREASED TO 90 CC/HR. PT TOLERATING WELL. NO NAUSEA/VOMITING OR ABD DISCOMFORT. AT 2100 PT VOIDED 200 CC. BLADDER SCAN SHOWED 470 CC. PT AGREEABLE TO STRAIGHT CATH AND REFUSES TO HAVE "THE CATHETER THAT STAYS IN". STRAIGHT CATH WITH 350 CC YELLOW URINE OUTPUT. COUGHS UP THICK WHITE PHLEGM. DRSG TO COCCYX INTACT. MIN ASSIST WITH GAIT BELT AND WALKER. UP TO BSC OR USES URINAL. WEARS PULLUPS. USED CALL LIGHT MOST OF THE TIME. CALL LIGHT IN REACH AND BED ALARM ON.
[2019-02-21 05:42] LABS: PROTIME 33.2 Seconds (9.20-11.50)
[2019-02-21 06:09] LABS: CALCIUM 8.6 mg/dL (8.5-10.1); CREATININE 1.1 mg/dL (0.6-1.3); MAGNESIUM 2.1 mg/dL (1.8-2.4); POTASSIUM 4.3 mmol/L (3.5-5.1)
[2019-02-21 06:15] LABS: INR 3.4
[2019-02-21 08:27] VITALS: BP 139/61
--- NOTE | 2019-02-21 11:27 | NUR ---
PATIENT BLADDER SCANNED AT 1050. 534MLS NOTED IN BLADDER. PATIENT UP TO BSC TO TRY AND VOID BUT PATIENT STATED HE DIDNT FEEL LIKE HE HAD TO GO. DR. MARROQUIN NOTIFIED AND ORDERS FOR STRAIGHT CATH PRN FOR SCANS >200MLS. SPOKE WITH PATIENT REGARDING STRAIGHT CATH AND PATIENT REFUSING STATING HE HAD THAT LAST NIGHT AND HE WASNT DOING IT AGAIN. PATIENT EDUCATED ON IMPORTANCE OF EMPYTING BLADDER, PATIENT CONTINUED TO REFUSE. DR. MARROQUIN NOTIFIED THAT PATIENT REFUSING. PATIENT STATED THAT UROLOGY SPOKE WITH PATIENT REGARDING STARTING "PROSCAR." UROLOGY NOTE REVIEWED AND NO MENTION OF PROSCAR ONLY FLOMAX THAT PATIENT IS ALREADY ON. DR. MARROQUIN MADE AWARE.
--- NOTE | 2019-02-21 16:19 | NUR ---
PATIENT TURNED SELF IN BED Q2. TUBE FEEDING RESTARTED AT 1500 PER SCHEDULE. PEG TUBE DRESSING CHANGED, NO BREAKDOWN NOTED. PEG TUBE FLUSHING WITHOUT DIFFICULTY. PATIENT STRAIGHT CATHED X 1 THIS SHIFT FOR BLADDER SCAN OF 534MLS. NO COMPLAINTS OF PAIN. DRESSING TO SACRUM CHANGED AND WOUND PHOTO TAKEN PER PROTOCOL.
[2019-02-21 17:08] VITALS: BP 131/68
--- NOTE | 2019-02-21 18:02 | NUR ---
PATIENT BLADDER SCANNED AT 1745 AND 403MLS NOTED. PATIENT STATED TO NURSE THAT ITS BECAUSE "YOU GUYS COME IN HERE AND FILL THIS TUBE WITH A BUNCH OF WATER." THIS NURSE EXPLAINED TO PATIENT THE ORDER FOR WATER BOLUSES WHEN PATIENT IS NPO AND RECEIVING TUBE FEEDINGS. PATIENT ENCOURAGED TO STAND AT THE SIDE OF BED AND TRY USING URINAL. PATIENT DID STAND UP AT BEDSIDE WITH NURSE BUT STOOD AND SAT IMMEDIATLEY EACH TIME APPROX 5 TIMES. PATIENT AGAIN ASKED BY THIS NURSE IF HE WANTED TO USE THE URINAL. PATIENT STATED THAT HE WANTED TO WALK AROUND THE ROOM BECAUSE "WE KEEP JUST GIVING HIM WATER IN HIS TUBE." PATIENT AMBULATED WITH NURSE AND USE OF WALKER AROUND ROOM. PATIENT ASKED BY THIS NURSE REPEATEDLY IF HE WANTED TO GO INTO THE BATHROOM AND TRY TO VOID. PATIENT IGNORED NURSE ON THOSE OCCASIONS. PATIENT AMBULATED WITH NURSE BACK TO BED AND STILL REFUSING TO TRY AND VOID PER URINAL. WILL CONTINUE TO MONITOR.
[2019-02-21 19:45] VITALS: BP 143/69
[2019-02-22 05:31] LABS: HEMATOCRIT 31.6 % (42.0-52.0); HEMOGLOBIN 10.3 gm/dL (14.0-18.0); MCH 28.2 pg (26.0-34.0); MCHC 32.8 g/dL (28.0-37.0); RBC 3.67 mil/uL (4.50-6.00); RDW-CV 16.8 % (10.5-14.5); WBC 8.7 thou/uL (4.0-11.0)
[2019-02-22 05:37] LABS: INR 2.4; PROTIME 23.9 Seconds (9.20-11.50)
[2019-02-22 05:40] LABS: CALCIUM 8.3 mg/dL (8.5-10.1); CREATININE 1.1 mg/dL (0.6-1.3); POTASSIUM 4.3 mmol/L (3.5-5.1)
--- NOTE | 2019-02-22 05:55 | NUR ---
ASSUMED CARES AT 1920. ALERT AND ORIENTED. MIN ASSIST WITH GAIT BELT AND WALKER. STANDS TO USE URINAL OR BSC. DRSG TO COCCYX INTACT. CONTINUES HACKING UP PHLEGM. POST VOID BLADDER SCAN AT 023 WAS 515 CC. PT AGREEABLE TO STRAIGHT CATH AND HAD 400 CC YELLOW URINE OUTPUT. PEG TUBE FEEDING AT 90 CC/HR. HAD 0-30 CC RESIDUALS. PT SLEPT SOME. IS USING CALL LIGHT MORE. BED ALARM ON.
[2019-02-22 08:21] VITALS: BP 167/65
--- NOTE | 2019-02-22 19:57 | NUR ---
I ASSUMED CARE OF THE PATIENT AT 0700. HE IS ALERT AND ORIENTED X4 AND TRANSFERS WELL FROM THE CHAIR TO THE BED. BED IS IN THE LOW LOCKED POSITION AND CALL LIGHT IS IN REACH. PAIN IS MANAGED WITH PRN MEDS. PATIENT AGREED TO AND A ALVAREZ WAS PLACED. TUBE FEEDINGS WERE GIVEN ORDERED WITH WATER FLUSHES AND MEDS. PATIENT COULD NOT URINATE AT ALL IN A URNIAL AND REACHED A BLADDER SCAN OF 775 CC. COUMADIN ORDER WAS DISCUSSED WITH PHYSICIAN. NEW MEDS WAS STARTED WITH UROLOGY WELL. WILL CONTINUE TO MONITOR.
[2019-02-22 20:00] VITALS: BP 144/63
--- NOTE | 2019-02-23 05:21 | NUR ---
ASSUMED CARES AT 1920. ALERT AND ORIENTED. PT COOPERATIVE AND PLEASANT. ALVAREZ CATHETER INTACT AND DD YELLOW URINE. PEG TUBE WITH FEEDING AT 90 CC/HR. TOLERATING WELL. PT SLEPT BETTER. CALL LIGHT IN REACH AND BED ALARM ON.
[2019-02-23 08:00] VITALS: BP 99/66
--- NOTE | 2019-02-23 11:16 | NUR ---
SW tried to call pt family, Chitra, in preparation for team conference tomorrow but no answer so SW left a detailed message requesting call back with any questions or concerns. SW to continue to follow to assist with safe dc planning.
--- NOTE | 2019-02-23 15:34 | NUR ---
ASSUMMED CARE OF PT AT 0730, PT ALERT AND ORIENTED, TRANSFERS WITH GB, CUEING, DENIES PAIN, ALVAREZ PATENT AND DRAINING LARGE AMOUNT IKM URINE, GASTROSTOMY SITE DRY AND INTACT, TUBE FEEDING STARTED AT 1500 AT 90CC PER HOUR, 20 CC RESIDUAL X 1, 200CC FLUID FLUSH GIVEN X 2, HOB ELEVATED, BP LOW THIS AM, CO REG HELD, PT REQUESTING TO BE UP IN ROOM BY HIMSELF EDUCATED FREQUENTLY THAT IT IS A SAFETY CONCERN AND HE NEEDS TO CALL FOR ASSIST.ALARMS ON, DRESSING CHANGED TO COCCYX, BARRIER OINT APPLIED, REPOSITIONED EVERY 2 HOURS, COUGHS FREQUENTLY AND COUGHS UP MODERATE AMOUNT OF PHLEGM, PARTICIPATED IN ALL THERAPIES, HOURLY ROUNDING COMPLETED, ASSESSMENT COMPLETE, WILL CONTINUE TO MONITOR.
[2019-02-23 20:04] VITALS: BP 120/59
[2019-02-24 05:15] LABS: HEMATOCRIT 33.1 % (42.0-52.0); HEMOGLOBIN 10.8 gm/dL (14.0-18.0); MCHC 32.7 g/dL (28.0-37.0); MCV 85.6 fL (80.0-100.0); MPV 10.6 fl. (7.2-11.1); RBC 3.87 mil/uL (4.50-6.00); RDW-CV 16.5 % (10.5-14.5); WBC 8.7 thou/uL (4.0-11.0)
[2019-02-24 05:33] LABS: INR 1.3; PROTIME 13.4 Seconds (9.20-11.50)
[2019-02-24 08:34] VITALS: BP 159/69
--- NOTE | 2019-02-24 16:37 | NUR ---
TAM and Dr Little met with pt and pt girlfriend to review team conference summary and discuss plan for pt to dc home with dtr to assist on Friday 03/02. TAM discussed team's recommendation for family training with gaines and PEG tube feedings and then with therapies; TAM called pt dtr Elizabeth to inform of the FT and schedule FT, left a detailed message to come in and work with nursing on the nursing care information and then to come in on Friday to work with therapies. SW to continue to follow to arrange tube feeding supplies, HH services, order RW and finalize safe dc plans for Friday.
--- NOTE | 2019-02-24 17:57 | NUR ---
PATIENT ANXIOUS TO BE DISCHARGED DISCUSSED NEED TO TRAIN FAMILY ON CATH CARE AND FEEDING TUBE. PT OBSESSED WITH ALVAREZ. TOLERATING THERAPIES.
[2019-02-24 19:30] VITALS: BP 149/75
--- NOTE | 2019-02-25 02:32 | NUR ---
ASSUMED CARE @ 1933-02/24-FRI.AWAKE IN BED WATCHING TV W/ HOB UP 30 DEGREES. PEG FEEDING IN PROGRESS.ALVAREZ CATHETER IN PLACE & DRAINING.BED ALARM ALREADY ON @ 1933.REQUESTED BLADDER SCAN @ 2106.DONE-0 ML.HS MEDS CRUSHED & MIXED W/ H20 & GIVEN PER PEG.NPO OBSERVED.CALLED 3X ABOUT ALVAREZ.INFORMED ALVAREZ IS DRAINING.SHOWN PATIENT URINE FLOWING IN TUBING & IN DRAINAGE BAG.RESIDUAL @ 2114- ML.CALLED FOR SLEEPING MED X2.BOTH TIMES WHEN RN CAME TO ROOM-PATIENT SLEEPING.TURNS SELF @ NIGHT. ON HOURLY ROUNDS.COINING PRESS OPERATOR DOING ODD HOUR ROUNDS.
--- NOTE | 2019-02-25 05:15 | NUR ---
SLEEPING SINCE 2239 & SLEPT WELL.BRP W/ ASSIST X1 @ 0000-02/25-URS FOR LARGE BM.STILL ON NPO.HACKING COUGH X1 EARLY PART OF SHIFT.WILL CHANGE PEG DRSG WHEN ACCUCHECK DONE @ 0600.
[2019-02-25 07:57] VITALS: BP 97/76
[2019-02-25 11:00] LABS: INR 1.3; PROTIME 13.3 Seconds (9.20-11.50)
[2019-02-25 15:20] VITALS: BP 143/71
--- NOTE | 2019-02-25 18:30 | NUR ---
PATIENT RESTING IN BED. PATIENT IS UP WITH MINIMAL ASSIST WITH GAIT BELT. PATIENT SLEPT MOST OF DAY BUT WAS UP IN CHAIR THIS EVENING. PATIENT IS NPO. PEG TUBE FEEDING IS INFUSING ORDERED. PATIENT DENIES ANY PAIN. PATIENT DENIES ANY NEEDS AT THIS TIME. CALL LIGHT WITHIN REACH. BED ALARM ON.
[2019-02-25 19:41] VITALS: BP 116/63
[2019-02-26 04:52] LABS: INR 1.5; PROTIME 15.4 Seconds (9.20-11.50)
--- NOTE | 2019-02-26 05:38 | NUR ---
ASSUMED PT CARE AT 1930. PT ALERT AND ORIENTED, POLITE AND COOPERATIVE WITH CARES. DENIES PAIN. PT SLEPT WELL AFTER STAYING UP LATE WATCHING MOVIES ON HIS DVD. ALVAREZ TO DD DRAINING CLEAR YELLOW URINE. PEG TUBE FEEDING INFUSING ORDERED. NO STOOL THIS SHIFT. PT FREQUENTLY COUGHED UP WHITE FROTHY PHLEGM. USES CALL LIGHT APPROPRIATELY. CALL LIGHT AND FREQUENTLY USED ITEMS IN REACH. BED ALARM ON FOR SAFETY. HOURLY ROUNDING IN PROGRESS, WILL CONTINUE TO MONITOR.
[2019-02-26 08:26] VITALS: BP 150/69
[2019-02-26 20:04] VITALS: BP 142/76
[2019-02-27 04:43] LABS: HEMATOCRIT 33.8 % (42.0-52.0); HEMOGLOBIN 11.1 gm/dL (14.0-18.0); MCHC 32.8 g/dL (28.0-37.0); MCV 85.3 fL (80.0-100.0); MPV 10.9 fl. (7.2-11.1); RBC 3.97 mil/uL (4.50-6.00); RDW-CV 16.7 % (10.5-14.5); WBC 9.2 thou/uL (4.0-11.0)
[2019-02-27 04:48] LABS: INR 2.1; PROTIME 20.7 Seconds (9.20-11.50)
[2019-02-27 04:49] LABS: CALCIUM 8.9 mg/dL (8.5-10.1)
--- NOTE | 2019-02-27 06:37 | NUR ---
ASSUMED PATIENT CARE AT 1900. PATIENT ALERT AND ORIENTED TIMES FOUR. PEG TUBE PATENT TO FEEDING AND MEDICATION ADMINISTRATION. NO COMPLAINTS OF PAIN OR DISCOMFORT NOTED. FALL RISK PRECAUTIONS IN PLACE. PLATE FILLER AND HOURLY ROUNDING COMPLETED CHARTED.
[2019-02-27 07:45] VITALS: BP 165/89
--- NOTE | 2019-02-27 17:04 | NUR ---
AM ASSESSMENT AND VITAL SIGNS COMPLETED DOCUMENTED. PT SLEPT A LOT THIS AM BUT DID PARTICIPATE IN THE REQUIRED AMOUNT OF THERAPY. FAMILY VISITED IN THE AFTERNOON. PT REMAINS NPO WITH NUTRITION PROVIDED VIA TUBE FEEDING AND WATER BOLUSES. FC TO DD WITH LIGHT YELLOW URINE OUTPUT THIS SHIFT. PT HAS BEEN LESS IRRITABLE AND HAS ASKED APPROPRIATE QUESTIONS REGARDING HIS DISCHARGE PLANS. FALL PRECAUTIONS AND HOURLY ROUNDING CONTINUE.
[2019-02-27 20:08] VITALS: BP 143/74
--- NOTE | 2019-02-28 01:14 | NUR ---
ASSUMED CARE @ 1929-02/27-SAT.AWAKE IN BED W/ HOB UP.BED ALARM ON ALREADY @ 1929.TUBE FEEDING IN PROGRESS.ALVAREZ CATHETER PATENT & IN PLACE.WANTS TO DRINK ICE H20.INSTRUCTED THAT HE SHOULD BRUSHED HIS TEETH FIRST.DRANK 170 ML COLD H20 SLOWLY.WANTS TO SIT IN RECLINER @ 1949 & ASSISTED BY ARCHITECTURAL TECHNOLOGIST.RESIDUAL FROM PEG @ 2099-75 ML.HS MEDS CRUSHED,MIXED W/ H20 & GIVEN PER PEG @ 2099.FOLLOWED W/ 200 H20 FLUSH.TURNS SELF @ NIGHT.ON HOURLY ROUNDS.ARCHITECTURAL TECHNOLOGIST DOING ODD HOUR ROUNDS.
[2019-02-28 04:47] LABS: INR 2.7; PROTIME 26.3 Seconds (9.20-11.50)
--- NOTE | 2019-02-28 05:20 | NUR ---
SLEPT EARLY SINCE 2049 & SLEPT GOOD ALL NIGHT.NOTED HACKING COUGH @ SHORT INTERVAL X3 ONLY.TURNS SELF @ NIGHT.
[2019-02-28 07:46] VITALS: BP 148/77
[2019-02-28 19:30] VITALS: BP 144/78
--- NOTE | 2019-03-01 00:52 | NUR ---
ASSUMED CARE @ 1911-02/28-FRIDAY.AWAKE IN BED W/ HOB UP 30 DEGREES.WATCHING TV.BED ALARM ALREADY ON @ 1911.PEG FEEDING IN PROGRESS.ALVAREZ CATHETER-PATENT. WANTS TO AMBULATE IN HALLWAY & ASSISTED BY NEAR EAST ARCHEOLOGY PROFESSOR W/ GB & WALKER @ 2009.PEG RESIDUAL @ 2030-125 ML.SBA FOR ORAL HYGIENE W/ BRUSHING TEETH & SWABBING MOUTH @ 1598.ON HOURLY ROUNDS.NEAR EAST ARCHEOLOGY PROFESSOR DOING ODD HOUR ROUNDS.
[2019-03-01 04:06] LABS: HEMATOCRIT 32.5 % (42.0-52.0); HEMOGLOBIN 10.6 gm/dL (14.0-18.0); MCH 27.7 pg (26.0-34.0); MCHC 32.6 g/dL (28.0-37.0); MCV 85.1 fL (80.0-100.0); MPV 10.3 fl. (7.2-11.1); RBC 3.82 mil/uL (4.50-6.00); RDW-CV 16.8 % (10.5-14.5); WBC 10.3 thou/uL (4.0-11.0)
[2019-03-01 04:30] LABS: INR 2.7; PROTIME 26.6 Seconds (9.20-11.50)
[2019-03-01 04:32] LABS: CALCIUM 8.6 mg/dL (8.5-10.1); MAGNESIUM 2.1 mg/dL (1.8-2.4); POTASSIUM 3.9 mmol/L (3.5-5.1)
--- NOTE | 2019-03-01 05:11 | NUR ---
SLEPT LATE @ 99-03/01-FRIDAY.AWAKE @ INTERVALS DURING NIGHT.TOOK ONLY ABOUT 20 ML COLD H20 FOR FREE H20 THERAPHY.
[2019-03-01 07:49] VITALS: BP 135/74
--- NOTE | 2019-03-01 13:17 | NUR ---
WOUND CARE NOTE: PATIENT OUT OF ROOM AT THIS TIME, WILL ATTEMPT TO REASSESS AT A LATER TIME.
--- NOTE | 2019-03-01 16:37 | NUR ---
ASSUMMED CARE OF PATIENT AT 0730, PT ALERT, FORGETFUL, PT TRANSFERS WITH ASSIST OF 1 GB WALKER, PT IMPULSIVE AT TIMES SETS OFF ALARMS, PEG TUBE PATENT. FEEDINGS CHANGED TO BOLUS FEEDS, DAUGHTER INSTRUCTED ON HOW TO ADMINISTER MEDICATIONS AND TUBE FEEDING THRU PEG TUBE, ALSO INSTRUCTED PATIENT AND FAMILY ON HOW TO EMPTY CATHETER, SIGNIFICANT OTHER TO COME IN THIS EVENING AND WILL ALSO BE INSTRUCTED ON HOW TO DO TUBE FEED,MEDS.CATHETER, PT HAS COUGH AND DOES COUGH UP SMALL AMOUNT OF PHLEGM, NO RESIDUAL THIS AM, TOLERATED NOON BOLUS FEEDING, DENIED NAUSEA, H20 FLUSHES DONE, DRESSING TO COCCYX INTACT, DENIES PAIN, REPOSTIONED EVERY 2 HOURS, PARTICIPATED IN ALL THERAPIES, HOURLY ROUNDING COMPLETED, ASSESSMENT COMPLETE, WILL CONTINUE TO MONITOR.
--- NOTE | 2019-03-01 16:49 | NUR ---
Pt to dc home with family tomorrow, Friday 03/02. Pt dtr Elizabeth and pt girlfriend Chitra to complete family training with nursing today. TAM faxed referral to [facility] after providing options for HH to pt and pt preference of HH agency and will fax final orders/med list upon dc. TAM faxed referral and information on tube feeding nutrition to [facility]. TAM faxed order to [facility] approved for a RW to be issued. TAM to follow up again with [facility] to inform of dc date tomorrow for home INR monitor. TAM to continue to follow to assist with finalizing safe dc plan.
[2019-03-01 19:30] VITALS: BP 156/66
--- NOTE | 2019-03-02 05:26 | NUR ---
ASSUMED CARES AT 1920. ALERT AND ORIENTED. PLEASANT. IMPULSIVE AT TIMES. DENIED ANY PAIN. PEG TUBE INTACT AND BOLUS FEEDING GIVEN. ALVAREZ CATHETER DD YELLOW URINE. SLEPT MOST OF THE NIGHT. CALL LIGHT IN REACH AND BED ALARM ON.
[2019-03-02 06:27] LABS: INR 2.9
[2019-03-02 06:40] VITALS: BP 156/66
[2019-03-02 06:41] VITALS: BP 156/66
[2019-03-02 08:00] VITALS: BP 152/74
[2019-03-02] MEDS ORDERED: LIPITOR 20 MG T20 M1 PO (11:37)
[2019-03-02] MEDS ORDERED: PROSCAR 5MG TABL5 MG PO (11:38)
[2019-03-02] MEDS ORDERED: GLIPIZIDE5 MG PO (11:40)
[2019-03-02] MEDS ORDERED: COLACE100 MG PO (11:43)
[2019-03-02] MEDS ORDERED: ACETAMINOPHEN PER TUBE (11:50)
--- NOTE | 2019-03-02 13:36 | NUR ---
WOUND CARE NOTE: REASSESSMENT OF COCCYX ULCER WOUND MEASURES 1.3X0.6X0.2, HEALING, MOIST, YELLOW ESCHAR TO 100% OF WOUND BED. AUGUSTINE-WOUND WITH NEW PINK EPITHELIUM. NO S/S OF INFECTION. APPEARS TO BE HEALING WELL. CLEANSED WITH WOUND CLEANSER, PATTED DRY. APPLIED AQUACEL AG TO WOUND BED. COVERED WITH EXUDERM THEN TEGADERM. PATIENT TOLERATED DRESSING CHANGE WELL. EDUCATED PATIENT ON OFFLOADING MEASURES TO ASSIST WITH WOUND HEALING, COMMUNICATED UNDERSTANDING. RECOMMEND USE WAFFLE CUSHION WHEN IN CHAIR CONTINUE CURRENT DRESSING CHANGE ORDERS FOLLOW UP IN WOUND CENTER-APPOINTMENT MADE ENCOURAGE GOOD NUTRTION/HYDRATION TIGHT BLOOD GLUCOSE CONTROL
[2019-03-02 13:39] VITALS: BP 156/66
--- NOTE | 2019-03-02 13:44 | NUR ---
Pt to dc home with family care today. Pt family completed family training with nursing regarding tube feeding and gaines care. Ryan providing TF nutrition and home INR monitor to pt home. TAM faxed final dc orders/med list and dc summary to [facility], pt choice. TAM received approval for RW but in the end, pt had a RW available to him, cancelled order at this time. Pt family to provide pt ride home.
--- NOTE | 2019-03-02 15:01 | NUR ---
ASSUMMED CARE OF PT AT 0730, PT ALERT, FORGETFUL, TRANSFERS WITH ASSIST OF 1, GB WALKER, ALVAREZ PATENT AND DRAINING KIM URINE, BOLUS TUBE FEEDING COMPLETED AT BREAKFAST AND LUNCH, AND 175CC H2O FLUSH DONE X 2, O CC RESIDUAL X 2, DENIES NAUSEA, EDUCATION AND DEMONSTRATION GIVEN TO PTS SIGNIFICANT OTHER ON HOW TO DO TUBE FEEDING, HOW TO CRUSH MEDICATIONS AND ADMINISTER PER TUBE, HOW TO ADMINISTER H20 FLUSH, CARE OF TUBE, ALSO INSTRUCTED ON HOW TO EMPTY ALVAREZ AND DO ALVAREZ CARE, S.O.(CINDI) ASKED QUESTIONS AND STATED UNDERSTANDING OF INSTRUCTIONS, ORDERS OBTAINED FOR DISCHARGE, WD NURSE DID DRESSING CHANGE AND TOOK PICTURE, INSTRUCTED PT S.O. AND SON INSTRUCTED ON FALL PRECAUTIONS, WHEN TO CALL PHYSICIAN, HOME MEDICATIONS, FOLLOW UP APPTS, HOME HEALTH, NEW MEDICATIONS CALLED TO [facility] IN [place], PT HAS OWN WALKER FOR HOME, STATE UNDERSTANDING OF INSTRUCTIONS, PT EXCORTED TO MAIN ENTRANCE PER W/C WITH BELONGINGS.
== END 2019-03-02 14:15 | disposition home health service (06) | DRG 64 ==
LOC: M.REH 15:23
PROVIDERS: Family Medicine; Internal Medicine; Nurse Practitioner Adult Health; ADMIT Physical Medicine & Rehabilitation
DX: I63.9 Cerebral infarction, unspecified (principal); J69.0 Pneumonitis due to inhalation of food and vomit; E43 Unspecified severe protein-calorie malnutrition; G93.41 Metabolic encephalopathy; K27.4 Chronic or unspecified peptic ulcer, site unspecified, with hemorrhage; I48.20 Chronic atrial fibrillation, unspecified; D68.59 Other primary thrombophilia; K62.6 Ulcer of anus and rectum; R13.10 Dysphagia, unspecified; M19.90 Unspecified osteoarthritis, unspecified site; E11.9 Type 2 diabetes mellitus without complications; I25.10 Atherosclerotic heart disease of native coronary artery without angina pectoris; K27.9 Peptic ulcer, site unspecified, unspecified as acute or chronic, without hemorrhage or perforation; I10 Essential (primary) hypertension; K59.00 Constipation, unspecified; G47.33 Obstructive sleep apnea (adult) (pediatric); R33.9 Retention of urine, unspecified; R74.0 Nonspecific elevation of levels of transaminase and lactic acid dehydrogenase [LDH]; Z88.8 Allergy status to other drugs, medicaments and biological substances; Z79.01 Long term (current) use of anticoagulants; Z95.2 Presence of prosthetic heart valve; Z95.1 Presence of aortocoronary bypass graft; Z87.11 Personal history of peptic ulcer disease; Z79.899 Other long term (current) drug therapy; Z79.4 Long term (current) use of insulin; Z86.73 Personal history of transient ischemic attack (TIA), and cerebral infarction without residual deficits; Z68.20 Body mass index [BMI] 20.0-20.9, adult